=== PATIENT | male | born 1955 | race Caucasian/White ===

== ENCOUNTER → 2018-04-26 09:43 | Outpatient (CLI) | payer MEDICARE, SELFPAY ==
[2018-04-26 12:31] LABS: ALB/GLOB Ratio 1.1 RATIO (0.9-2.4); AST(SGOT) 32 U/L (15-37); Alanine Aminotransfer ALT/SGPT 49 U/L (16-61); Alkaline Phosphatase 46 U/L (45-117); Anion Gap 10 (5-15); BUN 18 mg/dL (7-18); BUN/Creat Ratio 20.4 RATIO (10-20); Chloride 105 mmol/L (98-107); Cholesterol 178 mg/dL (200); Creatinine, Serum 0.88 mg/dL (0.70-1.30); EST Glomerular Filtration Rate 92 mL/min (>60); Est Glom Filt Rate - Afr Amer 112 mL/min (>60); Globulin 3.8 g/dL (2.2-4.2); Glucose 99 mg/dL (74-106); High Density Lipoprotein 35 mg/dL; Potassium 4.2 mmol/L (3.5-5.1); Protein, Total 7.8 g/dL (6.4-8.2); Sodium Level 140 mmol/L (136-145); Triglycerides 92 mg/dL; Very Low Density Lipoprotein 18 mg/dL (5-40)
== END ==
PROVIDERS: Family Provider Family Medicine; PCP Family Medicine; Visit Provider Family Medicine
DX: I10 Essential (primary) hypertension (principal); E78.5 Hyperlipidemia, unspecified
CPT/HCPCS: 36415; 80053; 80061

== ENCOUNTER → 2018-09-25 17:08 | Outpatient (CLI) | payer MEDICARE, SELFPAY ==
[2018-06-12 11:07] VITALS: BMI 31.6
--- NOTE | 2018-09-25 17:11 | RAD_ITS ---
STUDY: X-RAY CHEST REASON FOR EXAM: Male, 63 years old. Cough TECHNIQUE: Single AP portable view of the chest. COMPARISON: None. FINDINGS: Lungs are expanded with innumerable well-defined circular nodules throughout both lung granados consistent with diffuse metastasis. Renal cell carcinoma can have this appearance as can other entities such as melanoma. No demonstrated effusion Heart and mediastinum cannot be assessed accurately due to the multiple nodules. Normal visualized pulmonary arteries. Normal visualized aortic arch and descending thoracic aorta. Normal visualized thoracic spine. Normal visualized ribs, clavicles, and shoulders. There is no demonstrated abnormality of the visualized soft tissue structures of the upper abdomen. RAD/Chest PA and Lateral IMPRESSION: Innumerable nodules scattered throughout both lung granados consistent with diffuse metastasis. Electronically Signed: Fran Vega MD at 17:43 EST , Service support ,
== END ==
PROVIDERS: Family Provider Family Medicine; PCP Family Medicine; Referring Provider Family Medicine; Visit Provider Family Medicine
DX: R05 Cough (principal)
CPT/HCPCS: 71046

== ENCOUNTER 2018-09-25 18:12 | Inpatient (IN) | payer MEDICARE, SELFPAY ==
[2018-09-25] VITALS (12 sets, daily range): BP systolic 116–137; BP diastolic 60–76; PULSE 97–112; RESP 16–27; TEMP 36.6–37.1; O2SAT 83–91; BMI 29.3; BMI 28.4; BMI 28.5
--- NOTE | 2018-09-25 | ASPIGT_PTH ---
PATIENT: YOU TENA LOC: [facility] U#:[id number] AGE/SX: 63/M ROOM: [facility] RE09/25/[address]: Dr. Alethea Collins DO : 1955 BED: 1 DIS: 09/30/2018 SPEC #: [id number] RECD: 09/26/18 09:29 STATUS: SHANTHI REBlair #: [id number] SUSAN: 09/25/18 00:[address]: Alethea Collins DEPT: SURGICAL PATHOLOGY RECD BY: Silvestre Dodson ENTERED: 09/26/18 09:30 SP TYPE: ASP RAD OTHR DR: MD Dr. Jethro Partida MD Dr. Derek Brown, DO Dr. Joseph Prah, MD Tissues: Lung, NOS Procedures: FNA Specimen Adequacy Gen Path Consultation (on slides) Special Stain Group II Surgery Specimen Level IV Imprint (control) HEADER OPERATION: CT-guided lung biopsy PRE-OP DIAGNOSIS: Melanoma, lung masses TISSUE SUBMITTED: Left lung mass 18g core x3 MICROSCOPIC DIAGNOSIS Left lung mass, CT-guided core biopsy: Malignant cells present consistent with metastatic malignant melanoma. AM:abundio 09/27/18 COMMENT The specimen is evaluated at the time of biopsy by Dr. Diaz. Immediate Evaluation = Malignant cells present. Immunohistochemistry ([id number]) supports the above diagnosis. This case is seen in consultation with Dr. Martinez of [employer]. The complete consultative report is viewable in patient's EMR. Case has been reviewed in consultation with Dr. Diaz who concurs with the above diagnosis. IDC:SJ MICROSCOPIC DESCRIPTION Slides are reviewed. GROSS DESCRIPTION Received in fixative is one container labeled with the patient's name and designated left lung. The specimen consists of elongated and irregular fragments of light salazar soft tissue measuring in aggregate 2 x 0.2 x 0.1 cm. The specimen is submitted in its entirety in one cassette. / AM:abundio 09/26/18 TC:0 CPT: 68499, 00019, 39857
--- NOTE | 2018-09-25 | IMM_PTH ---
PATIENT: YOU TENA LOC: U U#:[id number] AGE/SX: 63/M ROOM: [facility] [place] RE09/25/[address]: Dr. Alethea Collins DO : 1955 BED: 1 DIS: 09/30/2018 SPEC #: [id number] RECD: 09/27/18 12:34 STATUS: SHANTHI REQ #: [id number] SUSAN: 09/25/18 00:[address]: Alethea Collins DEPT: IMMUNOHISTOCHEMISTRY RECD BY: Shelley Dupree ENTERED: 09/27/18 12:36 SP TYPE: IMMUNO OTHR DR: MD Dr. Jethro Partida MD Dr. Derek Brown, DO Dr. Joseph Prah, MD Tissues: Left lung, NOS Procedures: NAPSIN A (add) Miko Ret (add) CK14 (add) CK20 (add) CK5-6 (add) CK7 (add) P53 (add) TTF1 (add) Vimentin (add) Pankeratin (initial) MELAN-A (add) PSAP (add) S-100 (add) PHYSICIAN & [place] [id number] SPECIMEN INFORMATION: Tissue Source: Left lung mass Clinical Info: Melanoma, lung mass Specimen Number: [id number] CPT code: 83024, 02520 x12 METHODOLOGY: Deparaffinized sections of prefer/formalin-fixed tissue or PAP/DQ stained slides are incubated with monoclonal/polyclonal antibodies/oligonucleotide probes. Localization is made via biotin free immunoperoxidase method. Appropriate controls are performed and reacted as expected. Results on target cell population are indicated in the following table: RESULTS: ANTIBODY / CLONE RESULT AE1-3 (AE1/AE3/PCK26) negative CK7 (OV-TL12/30) negative CK20 (KS20.8) negative Vimentin (V9) positive S-100 (4C4.9) positive, focal Melan A (A103) negative TTF-1 (8G7G3/1) negative Napsin A (Rabbit Polyclonal) negative PSAP (PASE/4LJ) negative CALRET (polyclonal) positive, focal CK5-6 (D5 & 1684) negative CK14 (LL002) negative P53 (DO-7) negative These tests were developed and their performance characteristics determined by [facility]. They may not have been cleared or approved by the U.S. Food and Drug Administration. The FDA has determined that such clearance or approval is not necessary. INTERPRETATION: Left lung mass, CT-guided biopsy: Consistent with metastatic malignant melanoma. AM:abundio 10/04/18 Case has been reviewed in consultation with Dr. Diaz who concurs with the above diagnosis. IDC:RICHIE
--- NOTE | 2018-09-25 18:24 | ED.RN ---
PT 88 PERCENT ON 6 LITERS. GOOD WAVEFORM. VENTURI MASK INITIATED AT 50 %
--- NOTE | 2018-09-25 18:40 | EKG12_ITS ---
Test Reason : Blood Pressure : / mmHG Vent. Rate : 108 BPM Atrial Rate : 108 BPM P-R Int : 136 ms QRS Dur : 086 ms QT Int : 326 ms P-R-T Axes : 035 002 066 degrees QTc Int : 436 ms Sinus tachycardia Low voltage QRS Borderline ECG Confirmed by TATIANNA SHETH MD ([id number]), international editorial producer SHIN ANDERSON ([id number]) on 09/28/2018 8:27:30 AM Referred By: Fahad Siddiqi Confirmed By:TATIANNA SHETH MD
--- NOTE | 2018-09-25 18:41 | CT_ITS ---
STUDY: CTA OF THE ABDOMINAL AORTA REASON FOR EXAM: Male, 63 years old. Remote history of melanoma.. Hypoxia. RADIATION DOSAGE (If Supplied By Facility): CTDIvol = ( ) mGy, DLP = ( ) mGycm TECHNIQUE: Axial CT angiography multi-detector data acquisition was obtained from the diaphragm to the ischial tuberosity following intravenous administration of 100ML ml of Isovue 370 contrast. Axial images and MIP images were reconstructed from the axial data set. Post-processing of the angiographic images was performed, with multiplanar reformation and 3D reconstruction. Individualized dose optimization techniques were used for this CT. TECHNICAL QUALITY: Good COMPARISON: PET/CT scan, May 15, 2017. CTA of the chest, September 25, 2018. Descriptors of Narrowing: None (0%) Mild (< 50%) Moderate (50-70%) Severe (70-90%) Subtotal/Total Occlusion (90-100%) Non-Evaluable (technically non-diagnostic FINDINGS: Abdominal aorta: There is minimal atherosclerotic changes of the infrarenal aorta without stricture dissection or aneurysm. Celiac and superior mesenteric arteries: No demonstrated narrowing. Inferior mesenteric artery: No demonstrated narrowing. Right renal artery(arteries): No demonstrated narrowing. Left renal artery(arteries): No demonstrated narrowing. Right common iliac artery: No demonstrated narrowing. Right external iliac artery: No demonstrated narrowing. Right internal iliac artery: No demonstrated narrowing. Left common iliac artery: No demonstrated narrowing. Left external iliac artery: No demonstrated narrowing. Left internal iliac artery: No demonstrated narrowing. There are multiple large nodular densities at the lung bases suspicious for metastatic disease. Please refer to the CTA of the chest for further details. The heart is normal in size. It there is diffuse fatty infiltration of the liver without focal mass. Normal spleen. Normal pancreas. There are low attenuation masses arising from the right adrenal gland. Metastases versus adenomas. Normal left adrenal gland. There is a 2.5 cm cystic-appearing lesion in the mid right kidney. There is a larger 4.7 cm cyst in the lower pole as well as other smaller cysts. There is no enhancing mass. Normal left kidney. There are multiple bilateral low-attenuation masses in the perinephric fat and retroperitoneal fat about the kidneys as well as extending downward into the extra peritoneal fat of the pelvic sidewalls. The largest measures 2.7 cm in length and could be seen next to the left psoas muscle on image 181 of series 2. Normal IVC. There is a 2.3 x 1.8 x 1.5 cm low-attenuation mass in the gastrohepatic ligament suspicious for malignancy. There is also a 1.2 cm low-attenuation mass just superior to the pancreatic tail and the splenic hilum. Normal stomach. There are low attenuation masses along the greater curvature measuring approximately 1 cm in diameter. Normal small bowel. Normal colon. Normal urinary bladder. The prostate is enlarged. No free air or free fluid is seen within the peritoneal cavity. There multiple nodules in subcutaneous fat over the abdominal wall and both flanks. There is degenerative change lumbar spine without evidence of lytic or blastic lesions. CT/CTA Abdomen W/WO Contrast IMPRESSION: 1. Multiple metastases involving the lungs retroperitoneal fat and mesenteric fat and subcutaneous fat and right adrenal gland. 2. Enlarged prostate. 3. Fatty infiltration of the liver. N.B. : The above information has been verbally conveyed by Kevon Carroll DO to Marta Contreras MD, on 09/25/2018 22:36:27 (ET). Electronically Signed: Kevon Carroll DO at 22:37 EST Tel [phone], Service support ,
--- NOTE | 2018-09-25 18:41 | CT_ITS ---
STUDY: CTA CHEST REASON FOR EXAM: Male, 63 years old. Hypoxia. Remote history of melanoma. RADIATION DOSAGE (If Supplied By Facility): CTDIvol = ( 15.58 ) mGy, DLP = ( 1016.80 ) mGycm TECHNIQUE: The examination was performed with the intravenous administration of 100ML ml of Isovue 370 contrast material. Post-processing of the angiographic images was performed, with multiplanar reformation and 3D reconstruction. Individualized dose optimization techniques were used for this CT. COMPARISON: Chest, September 25, 2018. FINDINGS: Normal enhancement of the main pulmonary artery and right and left pulmonary arteries. Normal enhancement of the bilateral peripheral pulmonary arteries. There is no demonstrated pulmonary embolism. Normal thoracic aorta. 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 There is no demonstrated aortic dissection. Normal heart and pericardium. There are small nonspecific mediastinal lymph nodes. Normal hilar regions. Normal visualized trachea and bronchi. The lungs are well expanded. There are too numerous to count rounded solid masses throughout both lungs most concentrated in the lower lobes. The largest posterior to the azygos vein region mediastinum measures 5.1 x 5.8 x 5.8 cm. No infiltrate or pleural effusions There are low attenuation mass is similar to those in the lungs in both axilla and in the subcutaneous tissues of both the anterior and posterior chest wall structures. There are degenerative changes of the thoracic spine without lytic or blastic lesions. Please refer to the CTA of the abdomen performed concurrently and dictated separately for discussion of the subdiaphragmatic findings. CT/CTA Chest W/WO Contrast IMPRESSION: Diffuse low attenuation masses throughout both lungs suspicious for metastatic disease. In light of their low attenuation appearance and the presence of similar lesions in the subcutaneous tissues metastatic melanoma is suspected. N.B. : The above information has been verbally conveyed by Kevon Carroll DO to Marta Contreras MD, on 09/25/2018 22:41:33 (ET). Electronically Signed: Kevon Carroll DO at 22:42 EST Tel [phone], Service support ,
[2018-09-25] MEDS: 0.9% Normal Saline 1,000 ML 150 ML IV (18:50)
[2018-09-25 18:51] LABS: Absolute Lymphocyte Count 1.42 X10^3/ul (0.83-4.51); Absolute Neutrophil Count 7.1 X10^3/uL (2.0-7.7); Basophil# 0.02 X10^3/uL; Basophil% 0.2 % (0-1); Eosinophil# 0.32 X10^3/uL; Eosinophils% 3.3 % (0-5); Hematocrit 42.8 % (40-54); Hemoglobin 14.2 g/dl (13.0-16.5); Lymphocyte # 1.42 X10^3/ul (4.0); Lymphocyte % 14.5 % (19-41); Mean Corp Hgb Conc 33.2 g/gl (32-36); Mean Corpuscular Hgb 30.9 pg (27.0-32.0); Mean Platelet Vol. 9.6 fl (6.2-12.0); Monocyte# 0.82 X10^3/uL; Monocyte% 8.4 % (0-10); Neutrophil # 7.12 X10^3/uL (2.7-7.7); Neutrophil % 72.9 % (47-70); Platelet Count 461 K/mm3 (150-450); RBC Distribution Width SD 47.4 fl (35.1-43.9); White Blood Count 9.8 K/mm3 (4.4-11.0)
--- NOTE | 2018-09-25 18:51 | ED.RN ---
PT REMAINS ON 50 % VENTURI MASK. P.O. 89-90 %. RESPIRATORY ENROUTE FOR AEROSOLS
[2018-09-25 18:52] LABS: POSITIVE COUNT NO; POSITIVE DIFFERENTIAL NO; POSITIVE MORPHOLOGY NO
[2018-09-25 19:06] LABS: Anion Gap 10 (5-15); BUN 31 mg/dL (7-18); BUN/Creat Ratio 45.5 RATIO (10-20); Calcium,Total 8.7 mg/dL (8.5-10.1); Chloride 107 mmol/L (98-107); Creatinine, Serum 0.68 mg/dL (0.70-1.30); EST Glomerular Filtration Rate 124 mL/min (>60); Est Glom Filt Rate - Afr Amer 150 mL/min (>60); Estimated Creatinine Clearance 111.83 ml/min; Glucose 99 mg/dL (74-106); Potassium 3.8 mmol/L (3.5-5.1); Sodium Level 139 mmol/L (136-145)
--- NOTE | 2018-09-25 22:48 | ED.DCSUM_ITS ---
- ER Visit Summary Date of Service: 09/25/18 Chief Complaint: [Shortness of breath] History of Present Illness: The patient is a 63 M [presents the emergency department shortness of breath for about a month. Patient was seen by Dr. Moreland and sent to the emergency department for hypoxemia. Patient also had a chest x-ray that showed abnormal metastasis to both lungs. Patient denies recent travel or surgery. He has had minimal cough. Cough mostly nonproductive. He denies any chest pain. Patient does have a history of hypertension and high cholesterol. Patient also with remote history of skin cancer. Patient states that he had melanoma removed from his left arm about a year and a half ago.] Physical Examination: [HEENT-PERRLA, EOMI. Cranial nerves II through XII grossly intact. TMs clear. Mucous membranes moist. No adenopathy. Cardiovascular-regular rate and rhythm without murmur or ectopy Lungs-decreased breath sounds bilaterally with some faint expiratory wheezes noted. Mild tachypnea. No accessory muscle use or retractions. Abdomen-normoactive bowel sounds, soft, nontender, no rebound or rigidity, no peritoneal signs. Extremities-intact ?4, normal range of motion, normal pulses, atraumatic] Test Results: [EKG obtained arrival shows sinus rhythm with a ventricular rate of 108 bpm with no acute I segment changes. CBC with differential showed a white count of 9.8, hemoglobin 14, hematocrit 43, platelets 461. History is unr emarkable. Troponin is less than 0.015. CT scans of the chest and abdomen with contrast showed diffuse metastasis in both lungs as well as retroperitoneal.] Emergency Department Course and Treatment: [Patient was placed on venti mask and oxygen. Patient was given a DuoNeb aerosol.] Treatment Plan: [Admit] Disposition: [Admit] Impression: [Hypoxemia Metastatic lung disease] This note was generated with [employer] dictation software. It may contain incorrect words, spelling, and punctuation that were not noted in review of the chart prior to signing ED Disposition - Plan for ED Patient: Referrals: Fahad Siddiqi MD [Primary Care Provider] -
--- NOTE | 2018-09-25 23:08 | HP.PCM_ITS ---
Problem List (1) Acute respiratory failure with hypoxia Status: Acute (2) Metastatic malignant melanoma Status: Acute (3) HTN (hypertension) Status: Chronic Qualifiers: Hypertension type: essential hypertension Qualified Code(s): I10 - Essential (primary) hypertension (4) HLD (hyperlipidemia) Status: Chronic Qualifiers: Hyperlipidemia type: pure hypercholesterolemia Qualified Code(s): E78.00 - Pure hypercholesterolemia, unspecified; E78.0 - Pure hypercholesterolemia History of Present Illness Date of Admission: 09/25/18 Chief Complaint: Dyspnea The patient is a 63 y/o M w/ PMHx: Hypertension, Melanoma s/p resection skin LUE ~ 1 year prior noted initially to have been thought cyst with then re-excision with per patient decent margins 05/2017 PET scan with increased glucose metabolism in the lateral soft tissue compartment left upper extremity prior to patient's second surgery, Hyperlipidemia who presents to the [facility] ED on 09/25/18 per his PCP recommendation with noted SPO2 77-80% on room air with chest x-ray demonstrating diffuse pulmonary nodules with ongoing cough, dyspnea worsening over the last nearly 4 weeks with patient refusal at PCP office for EMS transport noted to have driven himself. Patient notes that over the last 5-6 months he has lost approximately 15-20 pounds but he has been attempting weight loss with portion reduction. He denies any night sweats, fevers, chills. He does note that at the beginning of the year he started having small nodules on various skin regions and that these have grown notably over the last 2 months. work-up in the ED included initial T 98.8, heart rate 109, BP 116/64, respiratory rate 26, 91% on room air--> 80% on a Ventimask 10 L, CBC with WBC 9.8, heme globin 14.2, platelet 461 without market shift, BMP with BUN/creatinine 31/0.68, troponin < 0.015, CTA Chest, Abdomen and Pelvis w/ multiple metastatic disease involving the lungs, retroperitoneal fat and mesenteric fat as well as subcutaneous fat and right adrenal gland with no evidence of pulmonary embolism. Upon patient presentation discussed case with Dr. Valdovinos, power grader operator and he will evaluated in AM. Past Medical History Past Medical History (Chronic Problems): Chronic Problems (Last Reviewed 06/12/18 @ 11:08 by Saniya Parsons) HTN (hypertension) (Chronic) HLD (hyperlipidemia) (Chronic) Medical History: Medical History (Last Reviewed 06/12/18 @ 11:08 by Saniya Parsons) Melanoma C43.9 HTN (hypertension) I10 Allergies No Known Allergies Allergy (Verified 09/25/18 18:16) Home Medications: Ambulatory Orders Medication Instructions Recorded atorvastatin 10 mg tablet 10 mg PO DAILY 90 Days #90 tab 06/10/18 lisinopril 20 mg tablet 20 mg PO DAILY 90 Days #90 tab 06/10/18 Surgical History: Surgical History (Last Reviewed 06/12/18 @ 11:08 by Saniya Parsons) Status post surgical removal of malignant neoplasm of skin Z98.890 Surgical History: - - Left upper extremity melanoma intervention initially suspected to be cyst with follow-up resection following pathology results, bilateral lower extremity vein stripping. Psychiatric History: No pertinent psych hx Lives: Alone Smoking Status: Never smoker Tobacco Use: Non-smoker Alcohol: None Drugs: None - *Family History Maternal Family History: Family History (Last Reviewed 06/12/18 @ 11:08 by Saniya Parsons) Mother Diabetes Heart disease Father Heart disease History Items: - - Patient notes a maternal and paternal family history of heart disease in addition to a paternal family history of chronic lung disease with history of concurrent tobacco usage. Paternal Family History: Family History (Last Reviewed 06/12/18 @ 11:08 by Saniya Parsons) Mother Diabetes Heart disease Father Heart disease History Items: - - Patient notes a maternal and paternal family history of heart disease in addition to a paternal family history of chronic lung disease with history of concurrent tobacco usage. Review of Systems Constitutional: Reports: Malaise, Weakness, Fatigue. Denies: Chills, Fever, Weight Change HEENT: Denies: Head Aches, Sinus Congestion, Sinus Drainage Cardiovascular: Denies: Chest Pain, Palpitations Respiratory: Reports: Shortness of Breath, Shortness of breath at rest, Shortness of breath upon exertion. Denies: Cough, Sputum production Gastrointestinal: Denies: Abdominal Pain, Nausea, Vomiting Genitourinary: Denies: Dysuria Musculoskeletal: Denies: Joint Pain, Joint Tenderness Skin: Denies: Rash, Wounds Neurological: Denies: Numbness, Tingling, Focal weakness Psychiatric: Denies: Anxiety, Depression, Homicidal Ideations, Suicidal Ideations Hematologic/ Lymphatic: Denies: Easy Bruising, Easy Bleeding VTE Information - Inpt Only VTE Present on Admission: No VTE Mechan Device Prophylaxis: SCD's VTE Pharm Prophylaxis ordered?: Yes Patient Problems: Active and Suspected Problems (Last Reviewed 06/12/18 @ 11:08 by Saniya Parsons) Acute respiratory failure with hypoxia (Acute) Metastatic malignant melanoma (Acute) Subjective: Seated upright in ED bed, fatigued appearance, abdominal muscle usage, accessory muscle usage, increased respiratory rate, Ventimask in place. Objective: Physical Examination: General: awake, alert, oriented x 3 and cooperative, seated upright in the ED bed, ongoing increased respiratory rate, accessory muscle usage evident, Ventimask in place. Skin: normal color, turgor, no icterus, cyanosis except noted diffuse thorax nontender firm nodules which she has noted initially appeared at the beginning of the year and have continued to grow. HEENT: AT/NC, EOMI, PERRLA, mildly dry MM, no carotid bruits or JVD noted. Lungs: Fairly diffusely diminished breath sounds, increased rate, accessory muscle usage, Ventimask in place with oxygenation ranging from 88-91% while evaluating. Heart: Improved, regular rate and rhythm; no gallop, rub audible. Abdomen: soft, NTTP, ND, normal BS, no HSM. Extremities: no cyanosis, clubbing, or edema, see skin. Neurological: patient awake, alert, oriented x 3; cognitive function intact; pupils equally reactive to light and accomodation; cranial nerves II-XII grossly normal, moving all 4 extremities, no focal deficits, strength severely globally decreased secondary to acute preserved. Psychiatric: affect appears flat, lengthy discussion regarding status and does appear to comprehend, no acute evidence of depressive or anxiety feelings. - Physical Exam Vital Signs Temp Pulse Resp BP Pulse Ox 98.8 F 98 25 H 132/76 H 91 09/25/18 19:16 09/25/18 22:00 09/25/18 22:00 09/25/18 22:00 09/25/18 22:00 Oxygen Flow Rate (L/min) 10 Oxygen Delivery Method Venturi Mask Weight: 204 lb 5.896 oz Body Mass Index (BMI) 29.3 Laboratory Tests Past 24 Hrs 09/25/18 09/25/18 18:35 18:35 WBC 9.8 RBC 4.60 Hgb 14.2 Hct 42.8 MCV 93.0 MCH 30.9 MCHC 33.2 RDW 14.0 RDW Differential 47.4 H Plt Count 461 H MPV 9.6 Immature Gran % (Auto) 0.700 Neut % (Auto) 72.9 H Lymph % (Auto) 14.5 L Knott % (Auto) 8.4 Eos % (Auto) 3.3 Baso % (Auto) 0.2 Absolute Neuts (auto) 7.1 Absolute Lymphs (auto) 1.42 Total Counted Not Reportable Sodium 139 Potassium 3.8 Chloride 107 Carbon Dioxide 22.0 Anion Gap 10 BUN 31 H Creatinine 0.68 L Estim Creat Clear Calc 111.83 Est GFR (MDRD) Af Amer 150 Est GFR (MDRD) Non-Af 124 BUN/Creatinine Ratio 45.5 H Glucose 99 Calcium 8.7 Troponin I < 0.015 Assessment/Plan All Active Problems (Last Reviewed 06/12/18 @ 11:08 by Saniya Parsons) Acute respiratory failure with hypoxia (Acute) Metastatic malignant melanoma (Acute) Laceration of left thumb without damage to nail (Acute) The patient is a 63 y/o M w/ PMHx: Hypertension, Melanoma s/p resection skin LUE ~ 1 year prior noted initially to have been thought cyst with then re-excision with per patient decent margins w05/2017 PET scan with increased glucose metabolism in the lateral soft tissue compartment left upper extremity prior to patient's second surgery, Hyperlipidemia who presents to the [facility] ED on 09/25/18 per his PCP recommendation with noted SPO2 77-80% on room air with chest x-ray demonstrating diffuse pulmonary nodules with ongoing cough, dyspnea worsening over the last nearly 4 weeks. (1) Acute Hypoxic Respiratory Failure secondary to Suspected Metastatic Melanoma: Will admit to PCU, maintain on telemetry, ABG obtained in the ED and pending, if able to assist in improvement of comfort would consider CPAP/BIPAP, discussed code status and patient requested DNR-CCA, no intubation, will continue w/ Pulmonary AM consult, maintain on oxygen with wean as tolerated to room air, continue ATC duonebs, PRN albuterol, HOB, IS parameters. Patient preference to discuss presentation w/ Pulmonary and defer Oncology consultation until discussed his status and presentation with Pulmonary. From discussions with patient suspect he will be inclined to initiate hospice. In case of bx, will maintain NPO after midnight and hold AM lovenox pending Pulmonary eval uation, recommendations, discussions with patient. (2) Hypertension: Continue home regimen including lisinopril, PRN hydralazine. (3) Hyperlipidemia: Continue home statin regimen. (4) DVT Prophylaxis: SCDs, lovenox w/ AM hold for possible bx considerations. (5) CODE status: Discussed CODE status at length including difference between FULL code, DNR-CCA and DNR-CC status. Following discussions about the differences in these status, requested DNR-CCA, no intubation status. DNR-CCA, no intubation form signed and placed on the chart. Advanced Care Planning Face to Face Time: 18 minutes. Code Visit Inpatient E&M: 93994 Init Hosp L3 Procedures: 62993 Advncd Care Plan 30 Min
[2018-09-25 23:11] LABS: Allen Test POS; Base Excess -2 mmol/L (-2 to +2); Blood Gas Specimen Type ART; FI02 50; PO2 62 mmHG (75-100); SITE R Radial; SO2 91 % (95-99); Total Carbon Dioxide 24 mmol/L; pCO2 39.1 mmHg (35-45); pH 7.38 (7.35-7.45)
[2018-09-26] VITALS (37 sets, daily range): BP systolic 108–145; BP diastolic 44–92; PULSE 94–126; RESP 18–29; TEMP 36.5–37.3; O2SAT 87–95
--- NOTE | 2018-09-26 00:30 | CPS ---
Pt. doesn't wear CPAP @ home, and he has no interest in wearing here
--- NOTE | 2018-09-26 00:30 | CPS ---
Pt. doesn't wear CPAP @ home, and he has no interest in wearing it here
--- NOTE | 2018-09-26 00:30 | CPS ---
Pt. doesn't wear CPAP @ home, and he has no interest in wearing it here
--- NOTE | 2018-09-26 03:20 | CPS ---
Addendum entered by Irene Lehman 09/26/18 08:55: Original Note: PT SWITCHED TO HIGH FLOW NC DUE TO COMPLAINING ABOUT VENTI MASK
[2018-09-26] MEDS: Ipratropium/Albuterol Sulfate 3 ML AMPUL.NEB INHALATION ×5 (03:22→18:56)
[2018-09-26] MEDS: 0.9% Normal Saline 1,000 ML 100 ML IV ×2 (04:34→15:13)
--- NOTE | 2018-09-26 07:13 | PCM.CONS.GEN ---
Reason for Consult Date of Consultation: 09/26/18 Reason for Consultation: Hypoxemia/abnormal chest CT History of Present Illness: The patient is a 63-year-old male, with a history as outlined below, who presented to the emergency department at the urging of his PCP, Dr. Moreland, over concerns for hypoxemia and abnormal chest imaging studies. The patient endorses a history of melanoma, localized to his proximal left upper extremity, which was surgically resected approximately a year ago. The patient underwent 2 separate surgeries and was reportedly told that he had clear margins and no lymph node involvement. Over the last year, he has not had any additional follow-up with regard to the aforementioned. He reports that over the last month he has become progressively short of breath. He does not routinely utilize supplemental oxygen at his baseline. He reports that over the last 6 months he has lost 15-20 pounds, but states that he has made dietary modifications in an attempt to lose weight. Nevertheless, his appetite is not as robust as previous. The patient is a lifelong non-smoker, but did grow up in a smoking household. He worked previously in a [employer]. He has lived in [place] his entire life. He denies the presence of chest tightness or wheezing. He does report the presence of an occasional nonproductive cough. On presentation to the emergency department, the patient was noted to be afebrile, tachycardic and hypoxic, saturating 83% on room air. Laboratory evaluation revealed no evidence of a leukocytosis. Chemistry profile was largely unremarkable. Troponin was negative. A CTA chest was obtained and revealed no evidence for pulmonary embolism. However, there were innumerable rounded solid masses scattered throughout both lungs, consistent with metastatic disease. A CT of the abdomen also demonstrated evidence of metastatic disease. Past Medical History Past Medical History (Chronic Problems): Chronic Problems (Last Reviewed 06/12/18 @ 11:08 by Saniya Parsons) HTN (hypertension) (Chronic) HLD (hyperlipidemia) (Chronic) Medical History: Medical History (Last Reviewed 06/12/18 @ 11:08 by Saniya Parsons) Melanoma C43.9 HTN (hypertension) I10 Allergies No Known Allergies Allergy (Verified 09/25/18 18:16) Home Medications: Ambulatory Orders Medication Instructions Recorded atorvastatin 10 mg tablet 10 mg PO DAILY 90 Days #90 tab 06/10/18 lisinopril 20 mg tablet 20 mg PO DAILY 90 Days #90 tab 06/10/18 Surgical History: Surgical History (Last Reviewed 06/12/18 @ 11:08 by Saniya Parsons) Status post surgical removal of malignant neoplasm of skin Z98.890 Surgical History: - - Left upper extremity melanoma intervention initially suspected to be cyst with follow-up resection following pathology results, bilateral lower extremity vein stripping. Psychiatric History: No pertinent psych hx Lives: Alone Smoking Status: Never smoker Tobacco Use: Non-smoker Alcohol: None Drugs: None - *Family History Maternal Family History: Family History (Last Reviewed 06/12/18 @ 11:08 by Sanyia Parsons) Mother Diabetes Heart disease Father Heart disease History Items: - - Patient notes a maternal and paternal family history of heart disease in addition to a paternal family history of chronic lung disease with history of concurrent tobacco usage. Paternal Family History: Family History (Last Reviewed 06/12/18 @ 11:08 by Saniya Parsons) Mother Diabetes Heart disease Father Heart disease History Items: - - Patient notes a maternal and paternal family history of heart disease in addition to a paternal family history of chronic lung disease with history of concurrent tobacco usage. Review of Systems Constitutional: Reports: Weight Change, Fatigue Eyes: Denies: Blurred vision, Double vision HEENT: Denies: Head Aches, Sinus Congestion, Sinus Drainage Cardiovascular: Denies: Chest Pain, Palpitations Respiratory: Reports: Cough, Shortness of Breath Gastrointestinal: Denies: Abdominal Pain, Nausea, Vomiting Genitourinary: Denies: Dysuria Musculoskeletal: Denies: Joint Pain, Joint Tenderness Skin: Reports: - - Hx of Melanoma. Denies: Rash, Wounds Neurological: Denies: Numbness, Tingling, Focal weakness Psychiatric: Denies: Anxiety, Depression, Homicidal Ideations, Suicidal Ideations Hematologic/ Lymphatic: Denies: Easy Bruising, Easy Bleeding Patient Problems: Active and Suspected Problems (Last Reviewed 06/12/18 @ 11:08 by Saniya Parsons) Acute respiratory failure with hypoxia (Acute) Metastatic malignant melanoma (Acute) Objective: The patient's most recent lab work, culture data and imaging studies have all been personally reviewed. - Physical Exam General: Alert, Oriented x3, Cooperative, No apparent distress HEENT: Atraumatic, PERRLA, Normocephalic Oral: No Gingival or Mucosal Lesions/ Ulcerations Neck: Supple, No Nodes, Trachea Midline Lungs: No rhonchi, No wheeze, No rales, Diminished Cardiovascular: Regular Rhythm, Normal S1, Normal S2, No murmurs, Tachycardic Abdomen: Bowel Sounds Present, Soft Extremities: No clubbing, No cyanosis, No edema Skin: No breakdown Musculoskeletal: No Muscle Wasting Neurological: Cranial nerves II-XII grossly intact, Neuro grossly intact Psych/Mental Status: Alert and oriented to time, place, person, mood and affect Vital Signs Temp Pulse Resp BP Pulse Ox 36.8 C 101 H 20 H 142/72 H 91 09/26/18 06:27 09/26/18 06:27 09/26/18 06:27 09/26/18 06:27 09/26/18 06:27 Oxygen Flow Rate (L/min) 10 Oxygen Delivery Method Nasal Cannula Weight: 198 lb 6.656 oz Body Mass Index (BMI) 28.4 Intake and Output for Last 24 Hours 09/24/18 09/25/18 09/26/18 23:59 23:59 23:59 Intake Total 23.1 / 23.1 910 / 910 Balance 23.1 / 23.1 910 / 910 Laboratory Tests Past 24 Hrs 09/25/18 09/25/18 09/25/18 18:35 18:35 23:06 WBC 9.8 RBC 4.60 Hgb 14.2 Hct 42.8 MCV 93.0 MCH 30.9 MCHC 33.2 RDW 14.0 RDW Differential 47.4 H Plt Count 461 H MPV 9.6 Immature Gran % (Auto) 0.700 Neut % (Auto) 72.9 H Lymph % (Auto) 14.5 L Fajardo % (Auto) 8.4 Eos % (Auto) 3.3 Baso % (Auto) 0.2 Absolute Neuts (auto) 7.1 Absolute Lymphs (auto) 1.42 Total Counted Not Reportable Specimen Type ART Sample Site R Radial pH 7.38 Bicarbonate Actual 23.0 POC Total CO2 24 Base Excess -2 O2 Saturation 91 L O2 % 50 ABG pCO2 39.1 ABG pO2 62 L Joselito Test POS O2 Delivery Device Vent Mask Blood Gas Notified Whom HOSP Sodium 139 Potassium 3.8 Chloride 107 Carbon Dioxide 22.0 Anion Gap 10 BUN 31 H Creatinine 0.68 L Estim Creat Clear Calc 111.83 Est GFR (MDRD) Af Amer 150 Est GFR (MDRD) Non-Af 124 BUN/Creatinine Ratio 45.5 H Glucose 99 Calcium 8.7 Troponin I < 0.015 Clinical Impression(s) from Imaging Studies Abdomen CTA 09/25/18 18:41 IMPRESSION: 1. Multiple metastases involving the lungs retroperitoneal fat and mesenteric fat and subcutaneous fat and right adrenal gland. 2. Enlarged prostate. 3. Fatty infiltration of the liver. N.B. : The above information has been verbally conveyed by Kevon Carroll DO to Marta Contreras MD, on 09/25/2018 22:36:27 (ET). Electronically Signed: Kevon Carroll DO at 22:37 EST Tel [phone], Service support , ADDENDUM: 09/25/184 IMPRESSION: 1. Multiple metastases involving the lungs retroperitoneal fat and mesenteric fat and subcutaneous fat and right adrenal gland. 2. Enlarged prostate. 3. Fatty infiltration of the liver. N.B. : The above information has been verbally conveyed by Kevon Carroll DO to Marta Contreras MD, on 09/25/2018 22:36:27 (ET). Electronically Signed: Kevon Carroll DO at 22:37 EST Tel [phone], Service support , Chest CTA 09/25/18 18:41 IMPRESSION: Diffuse low attenuation masses throughout both lungs suspicious for metastatic disease. In light of their low attenuation appearance and the presence of similar lesions in the subcutaneous tissues metastatic melanoma is suspected. N.B. : The above information has been verbally conveyed by Kevon Carroll DO to Marta Contreras MD, on 09/25/2018 22:41:33 (ET). Electronically Signed: Kevon Carroll DO at 22:42 EST Tel [phone], Service support , ADDENDUM: 09/25/18 2249 IMPRESSION: Diffuse low attenuation masses throughout both lungs suspicious for metastatic disease. In light of their low attenuation appearance and the presence of similar lesions in the subcutaneous tissues metastatic melanoma is suspected. N.B. : The above information has been verbally conveyed by Kevon Carroll DO to Marta Contreras MD, on 09/25/2018 22:41:33 (ET). Electronically Signed: Kevon Carroll DO at 22:42 EST Tel [phone], Service support , Pelvis CTA 09/25/18 18:45 IMPRESSION: 1. Multiple metastases involving the lungs retroperitoneal fat and mesenteric fat and subcutaneous fat and right adrenal gland. 2. Enlarged prostate. 3. Fatty infiltration of the liver. N.B. : The above information has been verbally conveyed by Kevon Carroll DO to Marta Contreras MD, on 09/25/2018 22:36:27 (ET). Electronically Signed: Kevon Carroll DO at 22:37 EST Tel [phone], Service support , ADDENDUM: 09/25/18 2245 IMPRESSION: 1. Multiple metastases involving the lungs retroperitoneal fat and mesenteric fat and subcutaneous fat and right adrenal gland. 2. Enlarged prostate. 3. Fatty infiltration of the liver. N.B. : The above information has been verbally conveyed by Kevon Carroll DO to Marta Contreras MD, on 09/25/2018 22:36:27 (ET). Electronically Signed: Kevon Carroll DO at 22:37 EST Tel [phone], Service support , Assessment/Plan All Active Problems (Last Reviewed 06/12/18 @ 11:08 by Saniya Parsons) Acute respiratory failure with hypoxia (Acute) Metastatic malignant melanoma (Acute) Laceration of left thumb without damage to nail (Acute) RECOMMENDATIONS: 1. Patient to remain n.p.o. for now. Per radiology, CT-guided lung biopsy will be completed this morning. 2. Oncology consultation has been placed. Dr. Nagy to see patient following biopsy. 3. Wean supplemental oxygen to maintain saturations at or above 90%. IMPRESSIONS: 1. Acute hypoxemic respiratory failure secondary to extensive suspected pulmonary metastatic disease The patient does have a reported history of melanoma, which was surgically resected 1 year ago. He reportedly had clear margins and no lymph node involvement at that time. However, over the course of the last year, the patient appears to have developed significant pulmonary metastatic disease with extensive tumor burden bilaterally. This is most likely the etiology for his hypoxemia. I personally explained the patient's CAT scan findings to him this morning along with my concerns. The patient appears to be understanding. I recommended that we obtain an opinion from oncology with regards to potential management of the aforementioned. I called and spoke with Dr. Nagy this morning who indicated that he would see the patient, but would like to proceed with obtaining a biopsy, if at all feasible. Given the extensive pulmonary tumor burden, along with its proximity to the pleural surface, an order was placed for a CT-guided lung biopsy. I called and spoke with Dr. Colunga, who is in agreement to perform the CT-guided lung biopsy this morning. This note was generated with [employer] dictation software. It may contain incorrect words, spelling, and punctuation that were not noted in checking the note before signing. Code Visit Inpatient E&M: 57364 Init Hosp L3
--- NOTE | 2018-09-26 07:17 | CON.PCM_ITS ---
Reason for Consult Date of Consultation: 09/26/18 Reason for Consultation: Hypoxemia/abnormal chest CT History of Present Illness: The patient is a 63-year-old male, with a history as outlined below, who presented to the emergency department at the urging of his PCP, Dr. Moreland, over concerns for hypoxemia and abnormal chest imaging studies. The patient endorses a history of melanoma, localized to his proximal left upper extremity, which was surgically resected approximately a year ago. The patient underwent 2 separate surgeries and was reportedly told that he had clear margins and no lymph node involvement. Over the last year, he has not had any additional follow-up with regard to the aforementioned. He reports that over the last month he has become progressively short of breath. He does not routinely utilize supplemental oxygen at his baseline. He reports that over the last 6 months he has lost 15- 20 pounds, but states that he has made dietary modifications in an attempt to lose weight. Nevertheless, his appetite is not as robust as previous. The patient is a lifelong non-smoker, but did grow up in a smoking household. He worked previously in a [employer]. He has lived in [place] his entire life. He denies the presence of chest tightness or wheezing. He does report the presence of an occasional nonproductive cough. On presentation to the emergency department, the patient was noted to be afebrile, tachycardic and hypoxic, saturating 83% on room air. Laboratory evaluation revealed no evidence of a leukocytosis. Chemistry profile was largely unremarkable. Troponin was negative. A CTA chest was obtained and revealed no evidence for pulmonary embolism. However, there were innumerable rounded solid masses scattered throughout both lungs, consistent with metastatic disease. A CT of the abdomen also demonstrated evidence of metastatic disease. Past Medical History Past Medical History (Chronic Problems): Chronic Problems (Last Reviewed 06/12/18 @ 11:08 by Saniya Parsons) HTN (hypertension) (Chronic) HLD (hyperlipidemia) (Chronic) Medical History: Medical History (Last Reviewed 06/12/18 @ 11:08 by Saniya Parsons) Melanoma C43.9 HTN (hypertension) I10 Allergies No Known Allergies Allergy (Verified 09/25/18 18:16) Home Medications: Ambulatory Orders Medication Instructions Recorded atorvastatin 10 mg tablet 10 mg PO DAILY 90 Days #90 tab 06/10/18 lisinopril 20 mg tablet 20 mg PO DAILY 90 Days #90 tab 06/10/18 Surgical History: Surgical History (Last Reviewed 06/12/18 @ 11:08 by Saniya Parsons) Status post surgical removal of malignant neoplasm of skin Z98.890 Surgical History: - - Left upper extremity melanoma intervention initially suspected to be cyst with follow-up resection following pathology results, bilateral lower extremity vein stripping. Psychiatric History: No pertinent psych hx Lives: Alone Smoking Status: Never smoker Tobacco Use: Non-smoker Alcohol: None Drugs: None - *Family History Maternal Family History: Family History (Last Reviewed 06/12/18 @ 11:08 by Saniya Parsons) Mother Diabetes Heart disease Father Heart disease History Items: - - Patient notes a maternal and paternal family history of heart disease in addition to a paternal family history of chronic lung disease with history of concurrent tobacco usage. Paternal Family History: Family History (Last Reviewed 06/12/18 @ 11:08 by Saniya Parsons) Mother Diabetes Heart disease Father Heart disease History Items: - - Patient notes a maternal and paternal family history of heart disease in addition to a paternal family history of chronic lung disease with history of concurrent tobacco usage. Review of Systems Constitutional: Reports: Weight Change, Fatigue Eyes: Denies: Blurred vision, Double vision HEENT: Denies: Head Aches, Sinus Congestion, Sinus Drainage Cardiovascular: Denies: Chest Pain, Palpitations Respiratory: Reports: Cough, Shortness of Breath Gastrointestinal: Denies: Abdominal Pain, Nausea, Vomiting Genitourinary: Denies: Dysuria Musculoskeletal: Denies: Joint Pain, Joint Tenderness Skin: Reports: - - Hx of Melanoma. Denies: Rash, Wounds Neurological: Denies: Numbness, Tingling, Focal weakness Psychiatric: Denies: Anxiety, Depression, Homicidal Ideations, Suicidal Ideations Hematologic/ Lymphatic: Denies: Easy Bruising, Easy Bleeding Patient Problems: Active and Suspected Problems (Last Reviewed 06/12/18 @ 11:08 by Saniya Parsons) Acute respiratory failure with hypoxia (Acute) Metastatic malignant melanoma (Acute) Objective: The patient's most recent lab work, culture data and imaging studies have all been personally reviewed. - Physical Exam General: Alert, Oriented x3, Cooperative, No apparent distress HEENT: Atraumatic, PERRLA, Normocephalic Oral: No Gingival or Mucosal Lesions/ Ulcerations Neck: Supple, No Nodes, Trachea Midline Lungs: No rhonchi, No wheeze, No rales, Diminished Cardiovascular: Regular Rhythm, Normal S1, Normal S2, No murmurs, Tachycardic Abdomen: Bowel Sounds Present, Soft Extremities: No clubbing, No cyanosis, No edema Skin: No breakdown Musculoskeletal: No Muscle Wasting Neurological: Cranial nerves II-XII grossly intact, Neuro grossly intact Psych/Mental Status: Alert and oriented to time, place, person, mood and affect Vital Signs Temp Pulse Resp BP Pulse Ox 36.8 C 101 H 20 H 142/72 H 91 09/26/18 06:27 09/26/18 06:27 09/26/18 06:27 09/26/18 06:27 09/26/18 06:27 Oxygen Flow Rate (L/min) 10 Oxygen Delivery Method Nasal Cannula Weight: 198 lb 6.656 oz Body Mass Index (BMI) 28.4 Intake and Output for Last 24 Hours 09/24/18 09/25/18 09/26/18 23:59 23:59 23:59 Intake Total 23.1 / 23.1 910 / 910 Balance 23.1 / 23.1 910 / 910 Laboratory Tests Past 24 Hrs 09/25/18 09/25/18 09/25/18 18:35 18:35 23:06 WBC 9.8 RBC 4.60 Hgb 14.2 Hct 42.8 MCV 93.0 MCH 30.9 MCHC 33.2 RDW 14.0 RDW Differential 47.4 H Plt Count 461 H MPV 9.6 Immature Gran % (Auto) 0.700 Neut % (Auto) 72.9 H Lymph % (Auto) 14.5 L Parmer % (Auto) 8.4 Eos % (Auto) 3.3 Baso % (Auto) 0.2 Absolute Neuts (auto) 7.1 Absolute Lymphs (auto) 1.42 Total Counted Not Reportable Specimen Type ART Sample Site R Radial pH 7.38 Bicarbonate Actual 23.0 POC Total CO2 24 Base Excess -2 O2 Saturation 91 L O2 % 50 ABG pCO2 39.1 ABG pO2 62 L Joselito Test POS O2 Delivery Device Vent Mask Blood Gas Notified Whom HOSP Sodium 139 Potassium 3.8 Chloride 107 Carbon Dioxide 22.0 Anion Gap 10 BUN 31 H Creatinine 0.68 L Estim Creat Clear Calc 111.83 Est GFR (MDRD) Af Amer 150 Est GFR (MDRD) Non-Af 124 BUN/Creatinine Ratio 45.5 H Glucose 99 Calcium 8.7 Troponin I < 0.015 Clinical Impression(s) from Imaging Studies Abdomen CTA 09/25/18 18:41 IMPRESSION: 1. Multiple metastases involving the lungs retroperitoneal fat and mesenteric fat and subcutaneous fat and right adrenal gland. 2. Enlarged prostate. 3. Fatty infiltration of the liver. N.B. : The above information has been verbally conveyed by Kevon Carroll DO to Marta Contreras MD, on 09/25/2018 22:36:27 (ET). Electronically Signed: Kevon Carroll DO at 22:37 EST Tel [phone], Service support , ADDENDUM: 09/25/184 IMPRESSION: 1. Multiple metastases involving the lungs retroperitoneal fat and mesenteric fat and subcutaneous fat and right adrenal gland. 2. Enlarged prostate. 3. Fatty infiltration of the liver. N.B. : The above information has been verbally conveyed by Kevon Carroll DO to Marta Contreras MD, on 09/25/2018 22:36:27 (ET). Electronically Signed: Kevon Carroll DO at 22:37 EST Tel [phone], Service support , Chest CTA 09/25/18 18:41 IMPRESSION: Diffuse low attenuation masses throughout both lungs suspicious for metastatic disease. In light of their low attenuation appearance and the presence of similar lesions in the subcutaneous tissues metastatic melanoma is suspected. N.B. : The above information has been verbally conveyed by Kevon Carroll DO to Marta Contreras MD, on 09/25/2018 22:41:33 (ET). Electronically Signed: Kevon Carroll DO at 22:42 EST Tel [phone], Service support , ADDENDUM: 09/25/18 2249 IMPRESSION: Diffuse low attenuation masses throughout both lungs suspicious for metastatic disease. In light of their low attenuation appearance and the presence of similar lesions in the subcutaneous tissues metastatic melanoma is suspected. N.B. : The above information has been verbally conveyed by Kevon Carroll DO to Marta Contreras MD, on 09/25/2018 22:41:33 (ET). Electronically Signed: Kevon Carroll DO at 22:42 EST Tel [phone], Service support , Pelvis CTA 09/25/18 18:45 IMPRESSION: 1. Multiple metastases involving the lungs retroperitoneal fat and mesenteric fat and subcutaneous fat and right adrenal gland. 2. Enlarged prostate. 3. Fatty infiltration of the liver. N.B. : The above information has been verbally conveyed by Kevon Carroll DO to Marta Contreras MD, on 09/25/2018 22:36:27 (ET). Electronically Signed: Kevon Carroll DO at 22:37 EST Tel [phone], Service support , ADDENDUM: 09/25/18 2245 IMPRESSION: 1. Multiple metastases involving the lungs retroperitoneal fat and mesenteric fat and subcutaneous fat and right adrenal gland. 2. Enlarged prostate. 3. Fatty infiltration of the liver. N.B. : The above information has been verbally conveyed by Kevon Carroll DO to Marta Contreras MD, on 09/25/2018 22:36:27 (ET). Electronically Signed: Kevon Carroll DO at 22:37 EST Tel [phone], Service support , Assessment/Plan All Active Problems (Last Reviewed 06/12/18 @ 11:08 by Saniya Parsons) Acute respiratory failure with hypoxia (Acute) Metastatic malignant melanoma (Acute) Laceration of left thumb without damage to nail (Acute) RECOMMENDATIONS: 1. Patient to remain n.p.o. for now. Per radiology, CT-guided lung biopsy will be completed this morning. 2. Oncology consultation has been placed. Dr. Nagy to see patient following biopsy. 3. Wean supplemental oxygen to maintain saturations at or above 90%. IMPRESSIONS: 1. Acute hypoxemic respiratory failure secondary to extensive suspected pulmonary metastatic disease The patient does have a reported history of melanoma, which was surgically resected 1 year ago. He reportedly had clear margins and no lymph node invol vement at that time. However, over the course of the last year, the patient appears to have developed significant pulmonary metastatic disease with extensive tumor burden bilaterally. This is most likely the etiology for his hypoxemia. I personally explained the patient's CAT scan findings to him this morning along with my concerns. The patient appears to be understanding. I recommended that we obtain an opinion from oncology with regards to potential management of the aforementioned. I called and spoke with Dr. Nagy this morning who indicated that he would see the patient, but would like to proceed with obtaining a biopsy, if at all feasible. Given the extensive pulmonary tumor burden, along with its proximity to the pleural surface, an order was placed for a CT-guided lung biopsy. I called and spoke with Dr. Colunga, who is in agreement to perform the CT-guided lung biopsy this morning. This note was generated with [employer] dictation software. It may contain incorrect words, spelling, and punctuation that were not noted in checking the note before signing. Code Visit Inpatient E&M: 05172 Init Hosp L3
--- NOTE | 2018-09-26 08:06 | CT_ITS ---
PROCEDURE: CT GUIDED CORE NEEDLE BIOPSY OF A left upper lobe LUNG LESION INDICATION: Male, 63 years old. Multiple pulmonary metastasis. PHYSICIAN: Dr. Keanu RIVAS CONSENT: Written informed consent was obtained having explained the risks, benefits and alternatives in detail with the patient who accepted the risks and agreed to proceed. Laboratory review and clinical assessment was performed. CONSCIOUS SEDATION PROTOCOL: The Drugs used were: 1 mg Versed, IV., and 25 mcg Fentanyl, IV. The sedation time was: 16 minutes. Conscious sedation was started and 9 exam and terminated at 9:16 AM. The conscious sedation protocol was independently monitored. RADIATION DOSAGE (If Supplied By Facility): CTDIvol = ( 17 ) mGy, DLP = ( 1001.57 ) mGycm Individualized dose optimization techniques were used for this CT. TECHNIQUE: The patient was placed in the supine position. A noncontrast CT was performed to localize the lesion in the peripheral aspect of the left upper lobe . The skin surface was prepped and draped in a sterile fashion. 1% lidocaine was used for local anesthesia. Using CT guidance, a 18-gauge coaxial biopsy device was advanced to the periphery of the lesion. A total of 3 core specimens were obtained. The specimens were placed in a formalin solution. A post procedure CT demonstrated no adverse sequelae or pneumothorax. The patient tolerated the procedure well without adverse event. A negative biopsy does not exclude malignancy. Further imaging or clinical followup based on patient condition and degree of clinical suspicion for malignancy. Suggest rebiopsy, if biopsy results do not match with clinical scenario. CT/Biopsy/Inj or Needle Placement IMPRESSION: 1. CT directed core needle biopsy of the left upper lobe using CT image guidance with image documentation as described. Pathology results are pending. 2. Conscious Sedation protocol utilized with independent monitoring. Electronically Signed: Rodger Colunga MD at 12:17 EST , Service support ,
[2018-09-26] MEDS: 0.9% NaCl Peripheral Flush Adult/Peds IV (08:32)
[2018-09-26 08:57] LABS: Prothrombin Time (Protime)PT. 13.6 SECONDS (11.7-14.9)
[2018-09-26] MEDS: fentaNYL 100 MCG/2 ML Ampul IV (08:59)
[2018-09-26] MEDS: Midazolam 2 MG/2 ML Syringe IV (09:00)
--- NOTE | 2018-09-26 09:25 | RAD_ITS ---
STUDY: X-RAY CHEST REASON FOR EXAM: Male, 63 years old. The patient is status post left lung biopsy. TECHNIQUE: Inspiration expiration views. COMPARISON: Comparison is made with prior study dated September 25, 2018. FINDINGS: EKG electrodes are seen. Surgical clips are seen in the left axillary region. Stable multiple bilateral pulmonary nodules. There is no evidence of pneumothorax. RAD/Chest Insp/Exp 2 View IMPRESSION: No evidence of pneumothorax on the post left lung biopsy radiograph. Electronically Signed: Rodger Colunga MD at 13:05 EST , Service support ,
[2018-09-26] MEDS: Morphine 2 MG/ML Syringe IV ×2 (12:22→21:55)
[2018-09-26] MEDS: LORazepam 2 MG/ML Syringe 1 MG IV (12:22)
[2018-09-26] MEDS: Lisinopril 20 MG Tablet PO (12:28)
--- NOTE | 2018-09-26 12:28 | RAD_ITS ---
STUDY: X-RAY CHEST REASON FOR EXAM: Male, 63 years old. Tachycardia and chest pain. TECHNIQUE: Single AP portable view of the chest. COMPARISON: Comparison is made with prior examination done earlier today. FINDINGS: No evidence of pneumothorax. Stable multiple bilateral pulmonary nodules. RAD/Chest 1 View (Portable) IMPRESSION: Stable examination. No evidence of pneumothorax. Electronically Signed: Rdoger Colunga MD at 13:06 EST , Service support ,
[2018-09-26] MEDS: Atenolol 25 MG Tablet PO (12:31)
--- NOTE | 2018-09-26 16:14 | ONC.CONS.INP ---
Consult Referring Physician: Dr. Moni melendez. Consult Results: Disseminated malignancy-most likely Melanoma. Subjective Date of Service:: 09/26/18 Chief Complaint: SOB History of Present Illness: 63-year-old man presented with shortness of breath, Dr. Siddiqi sent him to the emergency room. He was found to be hypoxic. CT on 09/25/2018 showed multiple lung nodules, multiple subcutaneous nodules and multiple peritoneal nodules. He is now admitted to the hospital. He had melanoma removed from the left upper arm over a year ago first at [facility] and then at [facility]. PET/CT scan in May 2017 was reported as negative. Past Medical History: Chronic Problems (Last Reviewed 06/12/18 @ 11:08 by Saniya Parsons) HTN (hypertension) (Chronic) HLD (hyperlipidemia) (Chronic) Past Medical/Surgical History: Past Medical History - Most Recent Inpatient Visit Past Medical History Start: 09/25/18 23:59 Text: Status: Complete Freq: ONCE Protocol: Document 09/25/18 23:59 [facility] (Rec: 09/26/18 00:15 [facility] [id number]) BMI Required to complete PMH What is Patient's BMI 28.5 Past Medical History Unable History Recalled No Query Text:Pt Unable/Family Not Present Neurologic Medical History Hx Stroke/TIA No Hx Dementia/Alzheimer's No Hx Parkinson's Disease No Hx Seizures No Hx Multiple Sclerosis No Hx Migraines No Cardiac Medical History VTE Present on Admission No Hx of Deep Vein Thrombosis/VTE/PE No Hx Hypertension Yes Hx Chest Pain/Angina No Hx Heart Attack No Hx Cardiac Surgery/Stents/Etc. No Hx Heart Failure No Hx Pacemaker/AICD No Hx Irregular Heartbeat and/or Afib No Hx Anticoagulant Therapy No Query Text:(Coumadin, Aspirin, Plavix, Xarelto, etc.) Hx Pain in Legs when Walking/Leg Cramps No Respiratory Medical History Hx COPD No Hx Emphysema No Hx Smoking No Smoking Status Never smoker Tobacco Use Non-smoker Hx Tobacco Use in last 12 months No Hx Sleep Apnea No Do you snore loudly (louder than talking No or can be heard through closed doors)? Do you often feel tired/ fatigued/ No sleepy during daytime? Has anyone observed you stop breathing No during sleep? STOP Results Negative GI Medical History Hx Ulcer No Hx Hepatitis No Hx Cirrhosis No Hx GI Bleed No Hx Unplanned Weight Loss No Genitourinary Medical History Indwelling Catheter in Place on Arrival/ No Admission Hx Renal Disease No Hx Dialysis No Musculoskeletal History Hx Arthritis Yes Hx Rheumatoid Arthritis No Endocrine Medical History Hx Diabetes No Hx Thyroid Disease No Hematologic Medical History Hx of Blood Transfusion No Hx of Transfusion in last 3 Months No Ever experience any problems with No transfusion(s)? Hx of Preganancy in last 3 Months N/A Nurse Filling Out Transfusion & OHALE Questions: Date: 09/26/18 Time: 00:13 Psycho/Social Medical History Hx Depression No Hx Anxiety No Hx Behavior Disorder No Hx Alcohol Use No Hx Substance Use No Other Medical History Hx Blood Disorders No Hx Anemia No Hx Cancer Yes: lung with mets Hx Drug Resistant Organism No Wound/Pressure Injury Present on Arrival No /Admission Query Text:If yes, chart assessment in Shift/Clinical Findings Central Line/PICC/VAD Present on Arrival No /Admission Antibiotics within last 7 days? No Risk for Readmission Number of Risk Factors 2 At Risk for Readmission Patient is At Risk For Readmission Patient is eligible for Call Back Y Past Medical History (Last Reviewed 06/12/18 @ 11:08 by Saniya Parsons) Melanoma (Acute) HTN (hypertension) (Chronic) Past Surgical History (Last Reviewed 06/12/18 @ 11:08 by Saniya Parsons) Status post surgical removal of malignant neoplasm of skin (Acute) Maternal Family History: Family History (Last Reviewed 06/12/18 @ 11:08 by Saniya Parsons) Mother Diabetes Heart disease Father Heart disease Family History: - - Patient notes a maternal and paternal family history of heart disease in addition to a paternal family history of chronic lung disease with history of concurrent tobacco usage. Paternal Family History: Family History (Last Reviewed 06/12/18 @ 11:08 by Saniya Parsons) Mother Diabetes Heart disease Father Heart disease Family History: - - Patient notes a maternal and paternal family history of heart disease in addition to a paternal family history of chronic lung disease with history of concurrent tobacco usage. - Social History Lives: Alone Smoking Status: Never smoker Tobacco Use: Non-smoker Alcohol: None Drugs: None Allergies/Adverse Reactions: Allergy/AdvReac Type Severity Reaction Status Date / Time No Known Allergies Allergy Verified 09/25/18 18:16 Review of Systems Constitutional:: Reports: Weakness, Weight loss. Denies: Fever, Sweats Cardiovascular:: Denies: Chest pain, Palpitations, Dyspnea on exertion, Orthopnea, PND, Shortness of breath Respiratory: Reports: Shortness of breath at rest - for about 1 month. Gastrointestinal:: Denies: Abdominal pain, Nausea, Vomiting, Diarrhea, Constipation, Hematochezia Genitourinary: Denies: Dysuria, Hematuria, 15, Flank pain Musculoskeletal:: Denies: Back pain, Myalgia, Arthralgia Skin: Denies: Rash, Skin Changes, Wounds Neurological:: Denies: Headache, Dizziness, Visual changes, Tinnitus, Hearing loss Psychiatric: Denies: Anxiety, Depression, Homicidal Ideations, Suicidal Ideations Vital Signs Height 5 ft 10 in Weight: 90 kg Weight in Pounds 198.4 lbs Pulse Ox 94 Temperature 97.7 F Pulse Rate [4] 112 Pulse Rate [3] 110 Pulse Rate [2] 112 Pulse Rate [1 (Initial 111 Baseline)] Pulse Rate 100 Respiratory Rate [4] 23 Respiratory Rate [3] 26 Respiratory Rate [2] 23 Respiratory Rate [1 (Initial 25 Baseline)] Respiratory Rate 26 Blood Pressure [4] 125/65 Blood Pressure [3] 123/57 Blood Pressure [2] 112/44 Blood Pressure [1 (Initial 124/60 Baseline)] Blood Pressure 113/69 Blood Pressure Position Semi-Fowlers - Physical Exam General: Alert, Oriented x3, No apparent distress HEENT: Atraumatic, PERRLA, EOMI, Normocephalic Oropharynx:: Dry mucosa Neck:: Supple, Trachea midline. Negative for: JVD, bilateral Cardiac:: Tachycardia Lungs: Normal air movement, Tachypneic Abdomen:: Bowel sounds x 4, Soft, Non-tender, Non-distended. Negative for: Hepatosplenomegaly Extremities:: - - Scar L arm.. Negative for: Cyanosis, Edema Neurological: Neuro grossly intact Skin:: - - multiple subcutaneous nodules. Psychiatric:: Appropriate affect, Euthymic Lymphatics:: Negative for: Cervical lymphadenopathy, Supraclavicular lymphadenopathy, Axillary lymphadenopathy Laboratory Data: Laboratory Tests 09/26/18 09/25/18 09/25/18 Range/Units 08:38 23:06 18:35 WBC (4.4-11.0) K/mm3 RBC (4.6-6.2) M/mm3 Hgb (13.0-16.5) g/dl Hct (40-54) % MCV (80-94) fL MCH (27.0-32.0) pg MCHC (32-36) g/gl RDW (11.6-14.6) % RDW Differential (35.1-43.9) fl Plt Count (150-450) K/mm3 MPV (6.2-12.0) fl Immature Gran % (Auto) (0.0-0.9) % Neut % (Auto) (47-70) % Lymph % (Auto) (19-41) % [place] % (Auto) (0-10) % Eos % (Auto) (0-5) % Baso % (Auto) (0-1) % Absolute Neuts (auto) (2.0-7.7) X10^3/uL Absolute Lymphs (auto) (0.83-4.51) X10^3/ul Total Counted PT 13.6 (11.7-14.9) SECONDS INR 1.0 Specimen Type ART Sample Site R Radial pH 7.38 (7.35-7.45) Bicarbonate Actual 23.0 (22-26) mmol/L POC Total CO2 24 mmol/L Base Excess -2 (-2 to +2) mmol/L O2 Saturation 91 L (95-99) % O2 % 50 ABG pCO2 39.1 (35-45) mmHg ABG pO2 62 L (75-100) mmHG Joselito Test POS O2 Delivery Device Vent Mask Blood Gas Notified Whom HOSP Sodium 139 (136-145) mmol/L Potassium 3.8 (3.5-5.1) mmol/L Chloride 107 (98-107) mmol/L Carbon Dioxide 22.0 (21.0-32.0) mmol/L Anion Gap 10 (5-15) BUN 31 H (7-18) mg/dL Creatinine 0.68 L (0.70-1.30) mg/dL Estim Creat Clear Calc 111.83 ml/min Est GFR (MDRD) Af Amer 150 (>60) mL/min Est GFR (MDRD) Non-Af 124 (>60) mL/min BUN/Creatinine Ratio 45.5 H (10-20) RATIO Glucose 99 (74-106) mg/dL Calcium 8.7 (8.5-10.1) mg/dL Troponin I < 0.015 (<0.045) ng/mL 09/25/18 Range/Units 18:35 WBC 9.8 (4.4-11.0) K/mm3 RBC 4.60 (4.6-6.2) M/mm3 Hgb 14.2 (13.0-16.5) g/dl Hct 42.8 (40-54) % MCV 93.0 (80-94) fL MCH 30.9 (27.0-32.0) pg MCHC 33.2 (32-36) g/gl RDW 14.0 (11.6-14.6) % RDW Differential 47.4 H (35.1-43.9) fl Plt Count 461 H (150-450) K/mm3 MPV 9.6 (6.2-12.0) fl Immature Gran % (Auto) 0.700 (0.0-0.9) % Neut % (Auto) 72.9 H (47-70) % Lymph % (Auto) 14.5 L (19-41) % [place] % (Auto) 8.4 (0-10) % Eos % (Auto) 3.3 (0-5) % Baso % (Auto) 0.2 (0-1) % Absolute Neuts (auto) 7.1 (2.0-7.7) X10^3/uL Absolute Lymphs (auto) 1.42 (0.83-4.51) X10^3/ul Total Counted Not Reportable PT (11.7-14.9) SECONDS INR Specimen Type Sample Site pH (7.35-7.45) Bicarbonate Actual (22-26) mmol/L POC Total CO2 mmol/L Base Excess (-2 to +2) mmol/L O2 Saturation (95-99) % O2 % ABG pCO2 (35-45) mmHg ABG pO2 (75-100) mmHG Joselito Test O2 Delivery Device Blood Gas Notified Whom Sodium (136-145) mmol/L Potassium (3.5-5.1) mmol/L Chloride (98-107) mmol/L Carbon Dioxide (21.0-32.0) mmol/L Anion Gap (5-15) BUN (7-18) mg/dL Creatinine (0.70-1.30) mg/dL Estim Creat Clear Calc ml/min Est GFR (MDRD) Af Amer (>60) mL/min Est GFR (MDRD) Non-Af (>60) mL/min BUN/Creatinine Ratio (10-20) RATIO Glucose (74-106) mg/dL Calcium (8.5-10.1) mg/dL Troponin I (<0.045) ng/mL Diagnostic Data: Diagnostic Data Abdomen CTA 09/25/18 18:41 IMPRESSION: 1. Multiple metastases involving the lungs retroperitoneal fat and mesenteric fat and subcutaneous fat and right adrenal gland. 2. Enlarged prostate. 3. Fatty infiltration of the liver. N.B. : The above information has been verbally conveyed by Kevon Carroll DO to Marta Contreras MD, on 09/25/2018 22:36:27 (ET). Electronically Signed: Kevon Carroll DO at 22:37 EST Tel [phone], Service support , ADDENDUM: 09/25/182243 IMPRESSION: 1. Multiple metastases involving the lungs retroperitoneal fat and mesenteric fat and subcutaneous fat and right adrenal gland. 2. Enlarged prostate. 3. Fatty infiltration of the liver. N.B. : The above information has been verbally conveyed by Kevon Carroll DO to Marta Contreras MD, on 09/25/2018 22:36:27 (ET). Electronically Signed: Kevon Carroll DO at 22:37 EST Tel [phone], Service support , Chest CTA 09/25/18 18:41 IMPRESSION: Diffuse low attenuation masses throughout both lungs suspicious for metastatic disease. In light of their low attenuation appearance and the presence of similar lesions in the subcutaneous tissues metastatic melanoma is suspected. N.B. : The above information has been verbally conveyed by Kevon Carroll DO to Marta Contreras MD, on 09/25/2018 22:41:33 (ET). Electronically Signed: Kevon Carroll DO at 22:42 EST Tel [phone], Service support , ADDENDUM: 09/25/18 2249 IMPRESSION: Diffuse low attenuation masses throughout both lungs suspicious for metastatic disease. In light of their low attenuation appearance and the presence of similar lesions in the subcutaneous tissues metastatic melanoma is suspected. N.B. : The above information has been verbally conveyed by Kevon Carroll DO to Marta Contreras MD, on 09/25/2018 22:41:33 (ET). Electronically Signed: Kevon Carroll DO at 22:42 EST Tel [phone], Service support , Pelvis CTA 09/25/18 18:45 IMPRESSION: 1. Multiple metastases involving the lungs retroperitoneal fat and mesenteric fat and subcutaneous fat and right adrenal gland. 2. Enlarged prostate. 3. Fatty infiltration of the liver. N.B. : The above information has been verbally conveyed by Kevon Carroll DO to Marta Contreras MD, on 09/25/2018 22:36:27 (ET). Electronically Signed: Kevon Carroll DO at 22:37 EST Tel [phone], Service support , ADDENDUM: 09/25/185 IMPRESSION: 1. Multiple metastases involving the lungs retroperitoneal fat and mesenteric fat and subcutaneous fat and right adrenal gland. 2. Enlarged prostate. 3. Fatty infiltration of the liver. N.B. : The above information has been verbally conveyed by Kevon Carroll DO to Marta Contreras MD, on 09/25/2018 22:36:27 (ET). Electronically Signed: Kevon Carroll DO at 22:37 EST Tel [phone], Service support , Biopsy CT 09/26/18 08:06 IMPRESSION: 1. CT directed core needle biopsy of the left upper lobe using CT image guidance with image documentation as described. Pathology results are pending. 2. Conscious Sedation protocol utilized with independent monitoring. Electronically Signed: Rodger Colunga MD at 12:17 EST , Service support , Chest X-Ray 09/26/18 12:28 IMPRESSION: Stable examination. No evidence of pneumothorax. Electronically Signed: Rodger Colunga MD at 13:06 EST , Service support , Assessment and Plan Disseminated malignancy most likely Melanoma. Respiratory failure due Metastatic disease. Prognosis is poor, may be in weeks. Lung mass biopsy pending. Suggestion to do supportive care for respiratory failure. Obtain palliative care consult. Will discuss Targeted therapy if biopsy shows actionable markers. Will follow with you. Thanks. Medications: Medications Added to Medication List This Visit Category Date Time Status 0.9% Normal Saline 500 ml Med 09/26/18 08:45 Active IV KVO mls/hr Atenolol [Tenormin (beta Trav)] Med 09/26/18 11:35 Active 25 mg PO DAILY Atorvastatin Calcium [Lipitor] Med 09/26/18 22:00 Active 10 mg PO DAILY@2200 Enoxaparin [Lovenox] Med 09/26/18 10:00 Hold 40 mg SC DAILY@1000 Ensure Enlive Med 09/26/18 10:00 Active 120 ml PO 4X/DAY Lisinopril [Zestril] Med 09/26/18 10:00 Active 20 mg PO DAILY morphine Inj Med 09/26/18 11:48 Active 2 - 4 mg IV Q4H PRN PRN morphine Inj Med 09/26/18 12:15 Active 2 - 4 mg IV Q4H PRN PRN Primary Care Provider: Fahad Siddiqi MD Referring Provider: - Problem List (1) Metastatic malignant melanoma Status: Acute (2) Acute respiratory failure with hypoxia Status: Acute Code Visit Office Visits / Consults: [id number] IP Consult L5
--- NOTE | 2018-09-26 16:22 | CON.PCM_ITS ---
Consult Referring Physician: Dr. Moni melendez. Consult Results: Disseminated malignancy-most likely Melanoma. Subjective Date of Service:: 09/26/18 Chief Complaint: SOB History of Present Illness: 63-year-old man presented with shortness of breath, Dr. Siddiqi sent him to the emergency room. He was found to be hypoxic. CT on 09/25/2018 showed multiple lung nodules, multiple subcutaneous nodules and multiple peritoneal nodules. He is now admitted to the hospital. He had melanoma removed from the left upper arm over a year ago first at [facility] and then at [facility]. PET/CT scan in May 2017 was reported as negative. Past Medical History: Chronic Problems (Last Reviewed 06/12/18 @ 11:08 by Saniya Parsons) HTN (hypertension) (Chronic) HLD (hyperlipidemia) (Chronic) Past Medical/Surgical History: Past Medical History - Most Recent Inpatient Visit Past Medical History Start: 09/25/18 23:59 Text: Status: Complete Freq: ONCE Protocol: Document 09/25/18 23:59 [facility] (Rec: 09/26/18 00:15 [facility] [id number]) BMI Required to complete PMH What is Patient's BMI 28.5 Past Medical History Unable History Recalled No Query Text:Pt Unable/Family Not Present Neurologic Medical History Hx Stroke/TIA No Hx Dementia/Alzheimer's No Hx Parkinson's Disease No Hx Seizures No Hx Multiple Sclerosis No Hx Migraines No Cardiac Medical History VTE Present on Admission No Hx of Deep Vein Thrombosis/VTE/PE No Hx Hypertension Yes Hx Chest Pain/Angina No Hx Heart Attack No Hx Cardiac Surgery/Stents/Etc. No Hx Heart Failure No Hx Pacemaker/AICD No Hx Irregular Heartbeat and/or Afib No Hx Anticoagulant Therapy No Query Text:(Coumadin, Aspirin, Plavix, Xarelto, etc.) Hx Pain in Legs when Walking/Leg Cramps No Respiratory Medical History Hx COPD No Hx Emphysema No Hx Smoking No Smoking Status Never smoker Tobacco Use Non-smoker Hx Tobacco Use in last 12 months No Hx Sleep Apnea No Do you snore loudly (louder than talking No or can be heard through closed doors)? Do you often feel tired/ fatigued/ No sleepy during daytime? Has anyone observed you stop breathing No during sleep? STOP Results Negative GI Medical History Hx Ulcer No Hx Hepatitis No Hx Cirrhosis No Hx GI Bleed No Hx Unplanned Weight Loss No Genitourinary Medical History Indwelling Catheter in Place on Arrival/ No Admission Hx Renal Disease No Hx Dialysis No Musculoskeletal History Hx Arthritis Yes Hx Rheumatoid Arthritis No Endocrine Medical History Hx Diabetes No Hx Thyroid Disease No Hematologic Medical History Hx of Blood Transfusion No Hx of Transfusion in last 3 Months No Ever experience any problems with No transfusion(s)? Hx of Preganancy in last 3 Months N/A Nurse Filling Out Transfusion & OHALE Questions: Date: 09/26/18 Time: 00:13 Psycho/Social Medical History Hx Depression No Hx Anxiety No Hx Behavior Disorder No Hx Alcohol Use No Hx Substance Use No Other Medical History Hx Blood Disorders No Hx Anemia No Hx Cancer Yes: lung with mets Hx Drug Resistant Organism No Wound/Pressure Injury Present on Arrival No /Admission Query Text:If yes, chart assessment in Shift/Clinical Findings Central Line/PICC/VAD Present on Arrival No /Admission Antibiotics within last 7 days? No Risk for Readmission Number of Risk Factors 2 At Risk for Readmission Patient is At Risk For Readmission Patient is eligible for Call Back Y Past Medical History (Last Reviewed 06/12/18 @ 11:08 by Saniya Parsons) Melanoma (Acute) HTN (hypertension) (Chronic) Past Surgical History (Last Reviewed 06/12/18 @ 11:08 by Saniya Parsons) Status post surgical removal of malignant neoplasm of skin (Acute) Maternal Family History: Family History (Last Reviewed 06/12/18 @ 11:08 by Saniya Parsons) Mother Diabetes Heart disease Father Heart disease Family History: - - Patient notes a maternal and paternal family history of heart disease in addition to a paternal family history of chronic lung disease with history of concurrent tobacco usage. Paternal Family History: Family History (Last Reviewed 06/12/18 @ 11:08 by Saniya Parsons) Mother Diabetes Heart disease Father Heart disease Family History: - - Patient notes a maternal and paternal family history of heart disease in addition to a paternal family history of chronic lung disease with history of concurrent tobacco usage. - Social History Lives: Alone Smoking Status: Never smoker Tobacco Use: Non-smoker Alcohol: None Drugs: None Allergies/Adverse Reactions: Allergy/AdvReac Type Severity Reaction Status Date / Time No Known Allergies Allergy Verified 09/25/18 18:16 Review of Systems Constitutional:: Reports: Weakness, Weight loss. Denies: Fever, Sweats Cardiovascular:: Denies: Chest pain, Palpitations, Dyspnea on exertion, Orthopnea, PND, Shortness of breath Respiratory: Reports: Shortness of breath at rest - for about 1 month. Gastrointestinal:: Denies: Abdominal pain, Nausea, Vomiting, Diarrhea, Constipation, Hematochezia Genitourinary: Denies: Dysuria, Hematuria, 15, Flank pain Musculoskeletal:: Denies: Back pain, Myalgia, Arthralgia Skin: Denies: Rash, Skin Changes, Wounds Neurological:: Denies: Headache, Dizziness, Visual changes, Tinnitus, Hearing loss Psychiatric: Denies: Anxiety, Depression, Homicidal Ideations, Suicidal Ideations Vital Signs Height 5 ft 10 in Weight: 90 kg Weight in Pounds 198.4 lbs Pulse Ox 94 Temperature 97.7 F Pulse Rate [4] 112 Pulse Rate [3] 110 Pulse Rate [2] 112 Pulse Rate [1 (Initial 111 Baseline)] Pulse Rate 100 Respiratory Rate [4] 23 Respiratory Rate [3] 26 Respiratory Rate [2] 23 Respiratory Rate [1 (Initial 25 Baseline)] Respiratory Rate 26 Blood Pressure [4] 125/65 Blood Pressure [3] 123/57 Blood Pressure [2] 112/44 Blood Pressure [1 (Initial 124/60 Baseline)] Blood Pressure 113/69 Blood Pressure Position Semi-Fowlers - Physical Exam General: Alert, Oriented x3, No apparent distress HEENT: Atraumatic, PERRLA, EOMI, Normocephalic Oropharynx:: Dry mucosa Neck:: Supple, Trachea midline. Negative for: JVD, bilateral Cardiac:: Tachycardia Lungs: Normal air movement, Tachypneic Abdomen:: Bowel sounds x 4, Soft, Non-tender, Non-distended. Negative for: Hepatosplenomegaly Extremities:: - - Scar L arm.. Negative for: Cyanosis, Edema Neurological: Neuro grossly intact Skin:: - - multiple subcutaneous nodules. Psychiatric:: Appropriate affect, Euthymic Lymphatics:: Negative for: Cervical lymphadenopathy, Supraclavicular lymphadenopathy, Axillary lymphadenopathy Laboratory Data: Laboratory Tests 09/26/18 09/25/18 09/25/18 Range/Units 08:38 23:06 18:35 WBC (4.4-11.0) K/mm3 RBC (4.6-6.2) M/mm3 Hgb (13.0-16.5) g/dl Hct (40-54) % MCV (80-94) fL MCH (27.0-32.0) pg MCHC (32-36) g/gl RDW (11.6-14.6) % RDW Differential (35.1-43.9) fl Plt Count (150-450) K/mm3 MPV (6.2-12.0) fl Immature Gran % (Auto) (0.0-0.9) % Neut % (Auto) (47-70) % Lymph % (Auto) (19-41) % [place] % (Auto) (0-10) % Eos % (Auto) (0-5) % Baso % (Auto) (0-1) % Absolute Neuts (auto) (2.0-7.7) X10^3/uL Absolute Lymphs (auto) (0.83-4.51) X10^3/ul Total Counted PT 13.6 (11.7-14.9) SECONDS INR 1.0 Specimen Type ART Sample Site R Radial pH 7.38 (7.35-7.45) Bicarbonate Actual 23.0 (22-26) mmol/L POC Total CO2 24 mmol/L Base Excess -2 (-2 to +2) mmol/L O2 Saturation 91 L (95-99) % O2 % 50 ABG pCO2 39.1 (35-45) mmHg ABG pO2 62 L (75-100) mmHG Joselito Test POS O2 Delivery Device Vent Mask Blood Gas Notified Whom HOSP Sodium 139 (136-145) mmol/L Potassium 3.8 (3.5-5.1) mmol/L Chloride 107 (98-107) mmol/L Carbon Dioxide 22.0 (21.0-32.0) mmol/L Anion Gap 10 (5-15) BUN 31 H (7-18) mg/dL Creatinine 0.68 L (0.70-1.30) mg/dL Estim Creat Clear Calc 111.83 ml/min Est GFR (MDRD) Af Amer 150 (>60) mL/min Est GFR (MDRD) Non-Af 124 (>60) mL/min BUN/Creatinine Ratio 45.5 H (10-20) RATIO Glucose 99 (74-106) mg/dL Calcium 8.7 (8.5-10.1) mg/dL Troponin I < 0.015 (<0.045) ng/mL 09/25/18 Range/Units 18:35 WBC 9.8 (4.4-11.0) K/mm3 RBC 4.60 (4.6-6.2) M/mm3 Hgb 14.2 (13.0-16.5) g/dl Hct 42.8 (40-54) % MCV 93.0 (80-94) fL MCH 30.9 (27.0-32.0) pg MCHC 33.2 (32-36) g/gl RDW 14.0 (11.6-14.6) % RDW Differential 47.4 H (35.1-43.9) fl Plt Count 461 H (150-450) K/mm3 MPV 9.6 (6.2-12.0) fl Immature Gran % (Auto) 0.700 (0.0-0.9) % Neut % (Auto) 72.9 H (47-70) % Lymph % (Auto) 14.5 L (19-41) % [place] % (Auto) 8.4 (0-10) % Eos % (Auto) 3.3 (0-5) % Baso % (Auto) 0.2 (0-1) % Absolute Neuts (auto) 7.1 (2.0-7.7) X10^3/uL Absolute Lymphs (auto) 1.42 (0.83-4.51) X10^3/ul Total Counted Not Reportable PT (11.7-14.9) SECONDS INR Specimen Type Sample Site pH (7.35-7.45) Bicarbonate Actual (22-26) mmol/L POC Total CO2 mmol/L Base Excess (-2 to +2) mmol/L O2 Saturation (95-99) % O2 % ABG pCO2 (35-45) mmHg ABG pO2 (75-100) mmHG Joselito Test O2 Delivery Device Blood Gas Notified Whom Sodium (136-145) mmol/L Potassium (3.5-5.1) mmol/L Chloride (98-107) mmol/L Carbon Dioxide (21.0-32.0) mmol/L Anion Gap (5-15) BUN (7-18) mg/dL Creatinine (0.70-1.30) mg/dL Estim Creat Clear Calc ml/min Est GFR (MDRD) Af Amer (>60) mL/min Est GFR (MDRD) Non-Af (>60) mL/min BUN/Creatinine Ratio (10-20) RATIO Glucose (74-106) mg/dL Calcium (8.5-10.1) mg/dL Troponin I (<0.045) ng/mL Diagnostic Data: Diagnostic Data Abdomen CTA 09/25/18 18:41 IMPRESSION: 1. Multiple metastases involving the lungs retroperitoneal fat and mesenteric fat and subcutaneous fat and right adrenal gland. 2. Enlarged prostate. 3. Fatty infiltration of the liver. N.B. : The above information has been verbally conveyed by Kevon Carroll DO to Marta Contreras MD, on 09/25/2018 22:36:27 (ET). Electronically Signed: Kevon Carroll DO at 22:37 EST Tel [phone], Service support , ADDENDUM: 09/25/182243 IMPRESSION: 1. Multiple metastases involving the lungs retroperitoneal fat and mesenteric fat and subcutaneous fat and right adrenal gland. 2. Enlarged prostate. 3. Fatty infiltration of the liver. N.B. : The above information has been verbally conveyed by Kevon Carroll DO to Marta Contreras MD, on 09/25/2018 22:36:27 (ET). Electronically Signed: Kevon Carroll DO at 22:37 EST Tel [phone], Service support , Chest CTA 09/25/18 18:41 IMPRESSION: Diffuse low attenuation masses throughout both lungs suspicious for metastatic disease. In light of their low attenuation appearance and the presence of similar lesions in the subcutaneous tissues metastatic melanoma is suspected. N.B. : The above information has been verbally conveyed by Kevon Carroll DO to Marta Contreras MD, on 09/25/2018 22:41:33 (ET). Electronically Signed: Kevon Carroll DO at 22:42 EST Tel [phone], Service support , ADDENDUM: 09/25/18 2249 IMPRESSION: Diffuse low attenuation masses throughout both lungs suspicious for metastatic disease. In light of their low attenuation appearance and the presence of similar lesions in the subcutaneous tissues metastatic melanoma is suspected. N.B. : The above information has been verbally conveyed by Kevon Carroll DO to Marta Contreras MD, on 09/25/2018 22:41:33 (ET). Electronically Signed: Kevon Carroll DO at 22:42 EST Tel [phone], Service support , Pelvis CTA 09/25/18 18:45 IMPRESSION: 1. Multiple metastases involving the lungs retroperitoneal fat and mesenteric fat and subcutaneous fat and right adrenal gland. 2. Enlarged prostate. 3. Fatty infiltration of the liver. N.B. : The above information has been verbally conveyed by Kevon Carroll DO to Marta Contreras MD, on 09/25/2018 22:36:27 (ET). Electronically Signed: Kevon Carroll DO at 22:37 EST Tel [phone], Service support , ADDENDUM: 09/25/185 IMPRESSION: 1. Multiple metastases involving the lungs retroperitoneal fat and mesenteric fat and subcutaneous fat and right adrenal gland. 2. Enlarged prostate. 3. Fatty infiltration of the liver. N.B. : The above information has been verbally conveyed by Kevon Carroll DO to Marta Contreras MD, on 09/25/2018 22:36:27 (ET). Electronically Signed: Kevon Carroll DO at 22:37 EST Tel [phone], Service support , Biopsy CT 09/26/18 08:06 IMPRESSION: 1. CT directed core needle biopsy of the left upper lobe using CT image guidance with image documentation as described. Pathology results are pending. 2. Conscious Sedation protocol utilized with independent monitoring. Electronically Signed: Rodger Colunga MD at 12:17 EST , Service support , Chest X-Ray 09/26/18 12:28 IMPRESSION: Stable examination. No evidence of pneumothorax. Electronically Signed: Rodger Colunga MD at 13:06 EST , Service support , Assessment and Plan Disseminated malignancy most likely Melanoma. Respiratory failure due Metastatic disease. Prognosis is poor, may be in weeks. Lung mass biopsy pending. Suggestion to do supportive care for respiratory failure. Obtain palliative care consult. Will discuss Targeted therapy if biopsy shows actionable markers. Will follow with you. Thanks. Medications: Medications Added to Medication List This Visit Category Date Time Status 0.9% Normal Saline 500 ml Med 09/26/18 08:45 Active IV KVO mls/hr Atenolol [Tenormin (beta Trav)] Med 09/26/18 11:35 Active 25 mg PO DAILY Atorvastatin Calcium [Lipitor] Med 09/26/18 22:00 Active 10 mg PO DAILY@2200 Enoxaparin [Lovenox] Med 09/26/18 10:00 Hold 40 mg SC DAILY@1000 Ensure Enlive Med 09/26/18 10:00 Active 120 ml PO 4X/DAY Lisinopril [Zestril] Med 09/26/18 10:00 Active 20 mg PO DAILY morphine Inj Med 09/26/18 11:48 Active 2 - 4 mg IV Q4H PRN PRN morphine Inj Med 09/26/18 12:15 Active 2 - 4 mg IV Q4H PRN PRN Primary Care Provider: Fahad Siddiqi MD Referring Provider: - Problem List (1) Metastatic malignant melanoma Status: Acute (2) Acute respiratory failure with hypoxia Status: Acute Code Visit Office Visits / Consults: [id number] IP Consult L5
[2018-09-26] MEDS: clonazePAM 1 MG Tablet PO (18:32)
[2018-09-26] MEDS: Atorvastatin Calcium 10 MG Tablet PO (21:55)
[2018-09-26] MEDS: LORazepam 0.5 MG Tablet PO (21:56)
[2018-09-27] VITALS (17 sets, daily range): BP systolic 100–140; BP diastolic 59–74; PULSE 88–122; RESP 20–30; TEMP 36.3–37.1; O2SAT 13–95
[2018-09-27] MEDS: 0.9% Normal Saline 1,000 ML 100 ML IV ×2 (01:43→11:37)
[2018-09-27] MEDS: clonazePAM 1 MG Tablet PO ×2 (06:27→22:43)
[2018-09-27] MEDS: Ipratropium/Albuterol Sulfate 3 ML AMPUL.NEB INHALATION ×4 (07:18→19:09)
--- NOTE | 2018-09-27 11:32 | CASEMGMT ---
Assessment- SW met with patient, introduced self and role at [facility]. Patient was in agreement with talking to SW. Living situation- Patient lives alone in a 1 story home with 1 entry step. PCP: Dr Siddiqi Specialists: None Pharmacy: [facility] DME: None ADL's/IADL's: Independent in all activities Past SNF/rehab: None Past HH: None LW: Patient has a living will and he is aware it is not on file. POA: Patient has a Healthcare POA and he is aware it is not on file. His brotherObey is his POA Plan: Patient is waiting on results from his lung biopsy to determine his treatment plan. He would like to talk with Hospice/Palliative Care just to see what they offer so he knows what is available once he knows more. He did not want any other family present for discussion. SW called Hospice and spoke with Candy letting her know this plan. They will make contact with patient to inform him on their services. Patient is currently on high flow O2 which he would likely not be able to get at home. He is open to options if his insurance would pay for them. SW is not sure he would qualify for SNF, but PT/OT was ordered as this will be required before insurance would even consider SNF. CORINNE and RN CM will follow and assist with d/c plan. Irene IBANEZ MSW
[2018-09-27] MEDS: Atenolol 25 MG Tablet PO (11:37)
[2018-09-27] MEDS: Lisinopril 20 MG Tablet PO (11:38)
--- NOTE | 2018-09-27 12:08 | CASEMGMT ---
SW spoke with Kalyn from Palliative/Hospice. Patient would not talk to her, but he had a female visitor present who spoke to her for him. He did answer the questions in the background. They will be meeting tomorrow at 10:15a. Irene IBANEZ MSW
--- NOTE | 2018-09-27 12:24 | PCM.PROGNOTE ---
Patient Problems: Active and Suspected Problems (Last Reviewed 06/12/18 @ 11:08 by Saniya Parsons) Acute respiratory failure with hypoxia (Acute) Metastatic malignant melanoma (Acute) Subjective: The patient was seen and examined at the bedside this morning. Events from the last 24 hours have been reviewed. The patient is currently afebrile, hemodynamically stable and maintaining appropriate oxygen saturations on 15 L/min. The patient did undergo successful CT-guided lung biopsy yesterday. Pathology results are currently pending. The patient voiced interest in talking to palliative care/hospice. There is currently a meeting scheduled for tomorrow morning. Objective: CTA chest revealed no evidence for pulmonary embolism. However, there were innumerable rounded solid masses scattered throughout both lungs, consistent with metastatic disease. A CT of the abdomen also demonstrated evidence of metastatic disease. - Physical Exam General: Alert, Cooperative HEENT: Atraumatic, PERRLA, Normocephalic Oral: No Gingival or Mucosal Lesions/ Ulcerations Neck: Supple, No Nodes, Trachea Midline Lungs: Diminished, Short of Breath, Tachypneic Cardiovascular: Normal S1, Normal S2, No murmurs, Tachycardic Abdomen: Bowel Sounds Present, Soft, Non Tender Extremities: No clubbing, No cyanosis, No edema Skin: No breakdown Musculoskeletal: No Tenderness to Palpation of Joints or Extremities Lymphatic: No Cervical, Supraclavicular, or Inguinal Adenopathy Neurological: Neuro grossly intact Psych/Mental Status: Depressed Vital Signs Temp Pulse Resp BP Pulse Ox 36.9 C 120 H 24 H 117/67 89 09/27/18 09:42 09/27/18 11:22 09/27/18 11:22 09/27/18 09:42 09/27/18 11:22 Oxygen Flow Rate (L/min) [4] 6 Oxygen Flow Rate (L/min) [3] 6 Oxygen Flow Rate (L/min) [2] 6 Oxygen Flow Rate (L/min) [1 ( 6 Initial Baseline)] Oxygen Flow Rate (L/min) 15 Oxygen Delivery Method [4] Nasal Cannula Oxygen Delivery Method [3] Nasal Cannula Oxygen Delivery Method [2] Nasal Cannula Oxygen Delivery Method [1 ( Nasal Cannula Initial Baseline)] Oxygen Delivery Method Nasal Cannula Weight: 198 lb 6.656 oz Body Mass Index (BMI) 28.4 Intake and Output for Last 24 Hours 09/25/18 09/26/18 09/27/18 23:59 23:59 23:59 Intake Total 23.1 / 23.1 3264 / 3264 607 / 607 Output Total 575 / 575 300 / 300 Balance 23.1 / 23.1 2689 / 2689 307 / 307 Labs (Last 48 Hours) 09/25/18 09/25/18 09/25/18 18:35 18:35 23:06 WBC 9.8 RBC 4.60 Hgb 14.2 Hct 42.8 MCV 93.0 MCH 30.9 MCHC 33.2 RDW 14.0 RDW Differential 47.4 H Plt Count 461 H MPV 9.6 Immature Gran % (Auto) 0.700 Neut % (Auto) 72.9 H Lymph % (Auto) 14.5 L [place] % (Auto) 8.4 Eos % (Auto) 3.3 Baso % (Auto) 0.2 Absolute Neuts (auto) 7.1 Absolute Lymphs (auto) 1.42 Total Counted Not Reportable PT INR Specimen Type ART Sample Site R Radial pH 7.38 Bicarbonate Actual 23.0 POC Total CO2 24 Base Excess -2 O2 Saturation 91 L O2 % 50 ABG pCO2 39.1 ABG pO2 62 L Joselito Test POS O2 Delivery Device Vent Mask Blood Gas Notified Whom HOSP Sodium 139 Potassium 3.8 Chloride 107 Carbon Dioxide 22.0 Anion Gap 10 BUN 31 H Creatinine 0.68 L Estim Creat Clear Calc 111.83 Est GFR (MDRD) Af Amer 150 Est GFR (MDRD) Non-Af 124 BUN/Creatinine Ratio 45.5 H Glucose 99 Calcium 8.7 Troponin I < 0.015 09/26/18 08:38 WBC RBC Hgb Hct MCV MCH MCHC RDW RDW Differential Plt Count MPV Immature Gran % (Auto) Neut % (Auto) Lymph % (Auto) [place] % (Auto) Eos % (Auto) Baso % (Auto) Absolute Neuts (auto) Absolute Lymphs (auto) Total Counted PT 13.6 INR 1.0 Specimen Type Sample Site pH Bicarbonate Actual POC Total CO2 Base Excess O2 Saturation O2 % ABG pCO2 ABG pO2 Joeslito Test O2 Delivery Device Blood Gas Notified Whom Sodium Potassium Chloride Carbon Dioxide Anion Gap BUN Creatinine Estim Creat Clear Calc Est GFR (MDRD) Af Amer Est GFR (MDRD) Non-Af BUN/Creatinine Ratio Glucose Calcium Troponin I Clinical Impression(s) from Imaging Studies Abdomen CTA 09/25/18 18:41 IMPRESSION: 1. Multiple metastases involving the lungs retroperitoneal fat and mesenteric fat and subcutaneous fat and right adrenal gland. 2. Enlarged prostate. 3. Fatty infiltration of the liver. N.B. : The above information has been verbally conveyed by Kevon Carroll DO to Marta Contreras MD, on 09/25/2018 22:36:27 (ET). Electronically Signed: Kevon Carroll DO at 22:37 EST Tel [phone], Service support , ADDENDUM: 09/25/18 2244 IMPRESSION: 1. Multiple metastases involving the lungs retroperitoneal fat and mesenteric fat and subcutaneous fat and right adrenal gland. 2. Enlarged prostate. 3. Fatty infiltration of the liver. N.B. : The above information has been verbally conveyed by Kevon Carroll DO to Marta Contreras MD, on 09/25/2018 22:36:27 (ET). Electronically Signed: Kevon Carroll DO at 22:37 EST Tel [phone], Service support , Chest CTA 09/25/18 18:41 IMPRESSION: Diffuse low attenuation masses throughout both lungs suspicious for metastatic disease. In light of their low attenuation appearance and the presence of similar lesions in the subcutaneous tissues metastatic melanoma is suspected. N.B. : The above information has been verbally conveyed by Kevon Carroll DO to Marta Contreras MD, on 09/25/2018 22:41:33 (ET). Electronically Signed: Kevon Carroll DO at 22:42 EST Tel [phone], Service support , ADDENDUM: 09/25/18 2249 IMPRESSION: Diffuse low attenuation masses throughout both lungs suspicious for metastatic disease. In light of their low attenuation appearance and the presence of similar lesions in the subcutaneous tissues metastatic melanoma is suspected. N.B. : The above information has been verbally conveyed by Kevon Carroll DO to Marta Contreras MD, on 09/25/2018 22:41:33 (ET). Electronically Signed: Kevon Carroll DO at 22:42 EST Tel [phone], Service support , Pelvis CTA 09/25/18 18:45 IMPRESSION: 1. Multiple metastases involving the lungs retroperitoneal fat and mesenteric fat and subcutaneous fat and right adrenal gland. 2. Enlarged prostate. 3. Fatty infiltration of the liver. N.B. : The above information has been verbally conveyed by Kevon Carroll DO to Marta Contreras MD, on 09/25/2018 22:36:27 (ET). Electronically Signed: Kevon Carroll DO at 22:37 EST Tel [phone], Service support , ADDENDUM: 09/25/18 2245 IMPRESSION: 1. Multiple metastases involving the lungs retroperitoneal fat and mesenteric fat and subcutaneous fat and right adrenal gland. 2. Enlarged prostate. 3. Fatty infiltration of the liver. N.B. : The above information has been verbally conveyed by Kevon Carroll DO to Marta Contreras MD, on 09/25/2018 22:36:27 (ET). Electronically Signed: Kevon Carroll DO at 22:37 EST Tel [phone], Service support , Biopsy CT 09/26/18 08:06 IMPRESSION: 1. CT directed core needle biopsy of the left upper lobe using CT image guidance with image documentation as described. Pathology results are pending. 2. Conscious Sedation protocol utilized with independent monitoring. Electronically Signed: Rodger Colunga MD at 12:17 EST , Service support , Chest X-Ray 09/26/18 09:25 IMPRESSION: No evidence of pneumothorax on the post left lung biopsy radiograph. Electronically Signed: Rodger Colunga MD at 13:05 EST , Service support , Chest X-Ray 09/26/18 12:28 IMPRESSION: Stable examination. No evidence of pneumothorax. Electronically Signed: Rodger Colunga MD at 13:06 EST , Service support , Medical Necessity - Tobacco Use Smoking Status: Never smoker Tobacco Use: Non-smoker Assessment/Plan All Active Problems (Last Reviewed 06/12/18 @ 11:08 by Saniya Parsons) Acute respiratory failure with hypoxia (Acute) Metastatic malignant melanoma (Acute) Laceration of left thumb without damage to nail (Acute) RECOMMENDATIONS: 1. Wean supplemental oxygen as tolerated. 2. Agree with palliative care/hospice consultation. IMPRESSIONS: 1. Acute hypoxemic respiratory failure secondary to extensive suspected pulmonary metastatic disease The patient does have a reported history of melanoma, which was surgically resected 1 year ago. He reportedly had clear margins and no lymph node involvement at that time. However, over the course of the last year, the patient appears to have developed significant pulmonary metastatic disease with extensive tumor burden bilaterally. This is most likely the etiology for his hypoxemia. The patient did undergo a CT-guided lung biopsy on September 26, the results of which are currently pending. He has already been evaluated by oncology and there are current plans for a hospice/palliative care meeting tomorrow morning. I will be available should any additional pulmonary related questions arise. Please do not hesitate to contact me. This note was generated with [employer] dictation software. It may contain incorrect words, spelling, and punctuation that were not noted in checking the note before signing. Code Visit Inpatient E&M: 09573 Subs Hosp L2
--- NOTE | 2018-09-27 12:28 | PN_ITS ---
Patient Problems: Active and Suspected Problems (Last Reviewed 06/12/18 @ 11:08 by Saniya Parsons) Acute respiratory failure with hypoxia (Acute) Metastatic malignant melanoma (Acute) Subjective: The patient was seen and examined at the bedside this morning. Events from the last 24 hours have been reviewed. The patient is currently afebrile, hemodynamically stable and maintaining appropriate oxygen saturations on 15 L/min. The patient did undergo successful CT-guided lung biopsy yesterday. Pathology results are currently pending. The patient voiced interest in talking to palliative care/hospice. There is currently a meeting scheduled for tomorrow morning. Objective: CTA chest revealed no evidence for pulmonary embolism. However, there were innumerable rounded solid masses scattered throughout both lungs, consistent with metastatic disease. A CT of the abdomen also demonstrated evidence of metastatic disease. - Physical Exam General: Alert, Cooperative HEENT: Atraumatic, PERRLA, Normocephalic Oral: No Gingival or Mucosal Lesions/ Ulcerations Neck: Supple, No Nodes, Trachea Midline Lungs: Diminished, Short of Breath, Tachypneic Cardiovascular: Normal S1, Normal S2, No murmurs, Tachycardic Abdomen: Bowel Sounds Present, Soft, Non Tender Extremities: No clubbing, No cyanosis, No edema Skin: No breakdown Musculoskeletal: No Tenderness to Palpation of Joints or Extremities Lymphatic: No Cervical, Supraclavicular, or Inguinal Adenopathy Neurological: Neuro grossly intact Psych/Mental Status: Depressed Vital Signs Temp Pulse Resp BP Pulse Ox 36.9 C 120 H 24 H 117/67 89 09/27/18 09:42 09/27/18 11:22 09/27/18 11:22 09/27/18 09:42 09/27/18 11:22 Oxygen Flow Rate (L/min) [4] 6 Oxygen Flow Rate (L/min) [3] 6 Oxygen Flow Rate (L/min) [2] 6 Oxygen Flow Rate (L/min) [1 ( 6 Initial Baseline)] Oxygen Flow Rate (L/min) 15 Oxygen Delivery Method [4] Nasal Cannula Oxygen Delivery Method [3] Nasal Cannula Oxygen Delivery Method [2] Nasal Cannula Oxygen Delivery Method [1 ( Nasal Cannula Initial Baseline)] Oxygen Delivery Method Nasal Cannula Weight: 198 lb 6.656 oz Body Mass Index (BMI) 28.4 Intake and Output for Last 24 Hours 09/25/18 09/26/18 09/27/18 23:59 23:59 23:59 Intake Total 23.1 / 23.1 3264 / 3264 607 / 607 Output Total 575 / 575 300 / 300 Balance 23.1 / 23.1 2689 / 2689 307 / 307 Labs (Last 48 Hours) 09/25/18 09/25/18 09/25/18 18:35 18:35 23:06 WBC 9.8 RBC 4.60 Hgb 14.2 Hct 42.8 MCV 93.0 MCH 30.9 MCHC 33.2 RDW 14.0 RDW Differential 47.4 H Plt Count 461 H MPV 9.6 Immature Gran % (Auto) 0.700 Neut % (Auto) 72.9 H Lymph % (Auto) 14.5 L [place] % (Auto) 8.4 Eos % (Auto) 3.3 Baso % (Auto) 0.2 Absolute Neuts (auto) 7.1 Absolute Lymphs (auto) 1.42 Total Counted Not Reportable PT INR Specimen Type ART Sample Site R Radial pH 7.38 Bicarbonate Actual 23.0 POC Total CO2 24 Base Excess -2 O2 Saturation 91 L O2 % 50 ABG pCO2 39.1 ABG pO2 62 L Joselito Test POS O2 Delivery Device Vent Mask Blood Gas Notified Whom HOSP Sodium 139 Potassium 3.8 Chloride 107 Carbon Dioxide 22.0 Anion Gap 10 BUN 31 H Creatinine 0.68 L Estim Creat Clear Calc 111.83 Est GFR (MDRD) Af Amer 150 Est GFR (MDRD) Non-Af 124 BUN/Creatinine Ratio 45.5 H Glucose 99 Calcium 8.7 Troponin I < 0.015 09/26/18 08:38 WBC RBC Hgb Hct MCV MCH MCHC RDW RDW Differential Plt Count MPV Immature Gran % (Auto) Neut % (Auto) Lymph % (Auto) [place] % (Auto) Eos % (Auto) Baso % (Auto) Absolute Neuts (auto) Absolute Lymphs (auto) Total Counted PT 13.6 INR 1.0 Specimen Type Sample Site pH Bicarbonate Actual POC Total CO2 Base Excess O2 Saturation O2 % ABG pCO2 ABG pO2 Joselito Test O2 Delivery Device Blood Gas Notified Whom Sodium Potassium Chloride Carbon Dioxide Anion Gap BUN Creatinine Estim Creat Clear Calc Est GFR (MDRD) Af Amer Est GFR (MDRD) Non-Af BUN/Creatinine Ratio Glucose Calcium Troponin I Clinical Impression(s) from Imaging Studies Abdomen CTA 09/25/18 18:41 IMPRESSION: 1. Multiple metastases involving the lungs retroperitoneal fat and mesenteric fat and subcutaneous fat and right adrenal gland. 2. Enlarged prostate. 3. Fatty infiltration of the liver. N.B. : The above information has been verbally conveyed by Kevon Carroll DO to Marta Contreras MD, on 09/25/2018 22:36:27 (ET). Electronically Signed: Kevon Carroll DO at 22:37 EST Tel [phone], Service support , ADDENDUM: 09/25/18 2244 IMPRESSION: 1. Multiple metastases involving the lungs retroperitoneal fat and mesenteric fat and subcutaneous fat and right adrenal gland. 2. Enlarged prostate. 3. Fatty infiltration of the liver. N.B. : The above information has been verbally conveyed by Kevon Carroll DO to Marta Contreras MD, on 09/25/2018 22:36:27 (ET). Electronically Signed: Kevon Carroll DO at 22:37 EST Tel [phone], Service support , Chest CTA 09/25/18 18:41 IMPRESSION: Diffuse low attenuation masses throughout both lungs suspicious for metastatic disease. In light of their low attenuation appearance and the presence of similar lesions in the subcutaneous tissues metastatic melanoma is suspected. N.B. : The above information has been verbally conveyed by Kevon Carroll DO to Marta Contreras MD, on 09/25/2018 22:41:33 (ET). Electronically Signed: Kevon Carroll DO at 22:42 EST Tel [phone], Service support , ADDENDUM: 09/25/18 2249 IMPRESSION: Diffuse low attenuation masses throughout both lungs suspicious for metastatic disease. In light of their low attenuation appearance and the presence of similar lesions in the subcutaneous tissues metastatic melanoma is suspected. N.B. : The above information has been verbally conveyed by Kevon Carroll DO to Marta Contreras MD, on 09/25/2018 22:41:33 (ET). Electronically Signed: eKvon Carroll DO at 22:42 EST Tel [phone], Service support , Pelvis CTA 09/25/18 18:45 IMPRESSION: 1. Multiple metastases involving the lungs retroperitoneal fat and mesenteric fat and subcutaneous fat and right adrenal gland. 2. Enlarged prostate. 3. Fatty infiltration of the liver. N.B. : The above information has been verbally conveyed by Kevon Carroll DO to Marta Contreras MD, on 09/25/2018 22:36:27 (ET). Electronically Signed: Kevon Carroll DO at 22:37 EST Tel [phone], Service support , ADDENDUM: 09/25/18 2245 IMPRESSION: 1. Multiple metastases involving the lungs retroperitoneal fat and mesenteric fat and subcutaneous fat and right adrenal gland. 2. Enlarged prostate. 3. Fatty infiltration of the liver. N.B. : The above information has been verbally conveyed by Kevon Carroll DO to Marta Contreras MD, on 09/25/2018 22:36:27 (ET). Electronically Signed: Kevon Carroll DO at 22:37 EST Tel [phone], Service support , Biopsy CT 09/26/18 08:06 IMPRESSION: 1. CT directed core needle biopsy of the left upper lobe using CT image guidance with image documentation as described. Pathology results are pending. 2. Conscious Sedation protocol utilized with independent monitoring. Electronically Signed: Rodger Colunga MD at 12:17 EST , Service support , Chest X-Ray 09/26/18 09:25 IMPRESSION: No evidence of pneumothorax on the post left lung biopsy radiograph. Electronically Signed: Rodger Colunga MD at 13:05 EST , Service support , Chest X-Ray 09/26/18 12:28 IMPRESSION: Stable examination. No evidence of pneumothorax. Electronically Signed: Rodger Colunga MD at 13:06 EST , Service support , Medical Necessity - Tobacco Use Smoking Status: Never smoker Tobacco Use: Non-smoker Assessment/Plan All Active Problems (Last Reviewed 06/12/18 @ 11:08 by Saniya Parsons) Acute respiratory failure with hypoxia (Acute) Metastatic malignant melanoma (Acute) Laceration of left thumb without damage to nail (Acute) RECOMMENDATIONS: 1. Wean supplemental oxygen as tolerated. 2. Agree with palliative care/hospice consultation. IMPRESSIONS: 1. Acute hypoxemic respiratory failure secondary to extensive suspected pulmonary metastatic disease The patient does have a reported history of melanoma, which was surgically resected 1 year ago. He reportedly had clear margins and no lymph node involvement at that time. However, over the course of the last year, the patient appears to have developed significant pulmonary metastatic disease with extensive tumor burden bilaterally. This is most likely the etiology for his hypoxemia. The patient did undergo a CT-guided lung biopsy on September 26, the results of which are currently pending. He has already been evaluated by oncology and there are current plans for a hospice/palliative care meeting tomorrow morning. I will be available should any additional pulmonary related questions arise. Please do not hesitate to contact me. This note was generated with [employer] dictation software. It may contain incorrect words, spelling, and punctuation that were not noted in checking the note before signing. Code Visit Inpatient E&M: 05490 Subs Hosp L2
[2018-09-27] MEDS: Sodium Chloride 0.65% 1 SPRAY SPRAY.BTL 2 SPRAY NASAL (18:03)
[2018-09-27] MEDS: Atorvastatin Calcium 10 MG Tablet PO (22:41)
[2018-09-27] MEDS: Morphine 2 MG/ML Syringe IV (22:42)
[2018-09-27] MEDS: LORazepam 0.5 MG Tablet PO (22:43)
--- NOTE | 2018-09-27 23:05 | PCM.PROGNOTE ---
Subjective: He tells me that his anxiety is much better today and he was able to sleep last night. He is ready to have a hospice consult but, if there is treatment available he would like to have chemo. - Physical Exam General: Alert, Oriented x3, Cooperative HEENT: Atraumatic Oral: Dry Mucosa Neck: Supple, No JVD, No Nuchal Rigidity, Trachea Midline Lungs: No rales, Diminished - Throughout, Tachypneic, Using Accessory Muscles, Wheezes - Mild Cardiovascular: Regular Rhythm, Normal S1, Normal S2, No rub noted, No Gallop, Tachycardic Abdomen: Bowel Sounds Present, Soft, Non Tender, Non-Distended Extremities: No cyanosis, No edema Skin: - - many subcutaneous skin nodules. Neurological: Cranial nerves II-XII grossly intact, Neuro grossly intact Psych/Mental Status: Appropriate, Anxious, Flat Affect - not making good eye contact, Vital Signs Temp Pulse Resp BP Pulse Ox 98 F 100 28 H 135/74 H 89 09/27/18 22:00 09/27/18 22:00 09/27/18 22:00 09/27/18 22:00 09/27/18 22:00 Oxygen Flow Rate (L/min) [4] 6 Oxygen Flow Rate (L/min) [3] 6 Oxygen Flow Rate (L/min) [2] 6 Oxygen Flow Rate (L/min) [1 ( 6 Initial Baseline)] Oxygen Flow Rate (L/min) 185 Oxygen Delivery Method [4] Nasal Cannula Oxygen Delivery Method [3] Nasal Cannula Oxygen Delivery Method [2] Nasal Cannula Oxygen Delivery Method [1 ( Nasal Cannula Initial Baseline)] Oxygen Delivery Method Nasal Cannula Weight: 198 lb 6.656 oz Body Mass Index (BMI) 28.4 Intake and Output for Last 24 Hours 09/25/18 09/26/18 09/27/18 23:59 23:59 23:59 Intake Total 23.1 / 23.1 3264 / 3264 1147 / 1147 Output Total 575 / 575 300 / 300 Balance 23.1 / 23.1 2689 / 2689 847 / 847 Medical Necessity - Tobacco Use Smoking Status: Never smoker Tobacco Use: Non-smoker Assessment/Plan All Active Problems (Last Reviewed 06/12/18 @ 11:08 by Saniya Parsons) Acute respiratory failure with hypoxia (Acute) Metastatic malignant melanoma (Acute) Laceration of left thumb without damage to nail (Acute) Impressions 1. Acute hypoxic respiratory failure secondary to suspected widespread metastatic melanoma to both lungs 2. Hypertension 3. History of melanoma with excision 1 year ago and a second surgery for a wider excision 4. Hyperlipidemia 5. Dehydration Had a transthoracic bx of the left lung today Sent for cytoligy and markers D/W Dr. Nagy - very poor prognosis Pt wants to be DNR CCA until the markers come back and he sees if there is any chance that chemo will help prolong his life....he knnows there will be no cure He refuses a venti mask or CPAP/BIPAP at this time He is c/o pain at the site of the bx and MS has been ordered He is very anxious and PRN benzo's have been ordered Code Visit Inpatient E&M: 06696 Subs Hosp L3
--- NOTE | 2018-09-27 23:07 | PN_ITS ---
Subjective: this is a late entry for 09/26 The patient is a 63-year-old male with a past medical history of hypertension, malignant melanoma of the left upper extremity with 2 surgeries a proximally 1 year ago. He presented to the emergency department at the request of Dr. Moreland for severe shortness of breath. A chest x-ray as an outpatient demonstrated d iffuse pulmonary masses and he has cough with dyspnea over the past 4 weeks. He is losing weight and this is unintentional. Eyes fever/chills. Admits to having small nodules on his skin which have developed over the preceding 2 months. He was admitted to the hospital with a diagnosis of multiple pulmonary masses, acute respiratory failure with hypoxemia and suspected widespread metastatic malignant melanoma. He is tachypneic and is using accessory muscles. He has seen the CT scan of the chest and Dr. Valdovinos explained to him that this is most likely metastasis from Malignant melanoma. He has met with Dr. Nagy and Dr. Nagy told him that the tumor would be checked for tumor markers and he may be a candidate for immunotherapy which may prolong his life IF he responds well. Objective: - Physical Exam General: Alert, Oriented x3, Cooperative HEENT: Atraumatic Oral: Dry Mucosa Neck: Supple, No JVD, No Nuchal Rigidity, Trachea Midline Lungs: No rales, Diminished - Throughout, Tachypneic, Using Accessory Muscles, Wheezes - Mild Cardiovascular: Regular Rhythm, Normal S1, Normal S2, No rub noted, No Gallop, Tachycardic Abdomen: Bowel Sounds Present, Soft, Non Tender, Non-Distended Extremities: No cyanosis, No edema Skin: - - many subcutaneous skin nodules. Neurological: Cranial nerves II-XII grossly intact, Neuro grossly intact Psych/Mental Status: Appropriate, Anxious, Flat Affect - not making good eye contact, - Physical Exam Vital Signs Temp Pulse Resp BP Pulse Ox 98 F 100 28 H 135/74 H 89 09/27/18 22:00 09/27/18 22:00 09/27/18 22:00 09/27/18 22:00 09/27/18 22:00 Oxygen Flow Rate (L/min) [4] 6 Oxygen Flow Rate (L/min) [3] 6 Oxygen Flow Rate (L/min) [2] 6 Oxygen Flow Rate (L/min) [1 ( 6 Initial Baseline)] Oxygen Flow Rate (L/min) 185 Oxygen Delivery Method [4] Nasal Cannula Oxygen Delivery Method [3] Nasal Cannula Oxygen Delivery Method [2] Nasal Cannula Oxygen Delivery Method [1 ( Nasal Cannula Initial Baseline)] Oxygen Delivery Method Nasal Cannula Weight: 198 lb 6.656 oz Body Mass Index (BMI) 28.4 Intake and Output for Last 24 Hours 09/25/18 09/26/18 09/27/18 23:59 23:59 23:59 Intake Total 23.1 / 23.1 3264 / 3264 1147 / 1147 Output Total 575 / 575 300 / 300 Balance 23.1 / 23.1 2689 / 2689 847 / 847 Medical Necessity - Tobacco Use Smoking Status: Never smoker Tobacco Use: Non-smoker Assessment/Plan All Active Problems (Last Reviewed 06/12/18 @ 11:08 by Saniya Parsons) Acute respiratory failure with hypoxia (Acute) Metastatic malignant melanoma (Acute) Laceration of left thumb without damage to nail (Acute) Code Visit Inpatient E&M: 88130 Subs Hosp L3
--- NOTE | 2018-09-27 23:18 | NURSING ---
PT ASKS TO NOT BE AWOKEN UNTIL 0600. WILL SCHEDULE AND GROUP CARE PER HIS REQUEST
[2018-09-28] VITALS (9 sets, daily range): BP systolic 118–136; BP diastolic 52–81; PULSE 93–108; RESP 12–40; TEMP 36.4–36.9; O2SAT 89–93
[2018-09-28] MEDS: Morphine 2 MG/ML Syringe IV (06:34)
[2018-09-28] MEDS: Ipratropium/Albuterol Sulfate 3 ML AMPUL.NEB INHALATION ×3 (06:58→19:34)
[2018-09-28] MEDS: Atenolol 25 MG Tablet PO (09:38)
[2018-09-28] MEDS: Lisinopril 20 MG Tablet PO (09:38)
[2018-09-28] MEDS: clonazePAM 1 MG Tablet PO ×2 (09:42→20:24)
--- NOTE | 2018-09-28 09:53 | CASEMGMT ---
CORINNE met with patient per his request to complete a Healthcare LW. SW also had a copy of patient's Healthcare POA and durable POA on CORINNE's desk this am. They were copies patient had from his attorney law clerk, however they were not signed. Patient signed the Healthcare POA papers. CORINNE confirmed with patient he is meeting with Palliative/Hospice today to discuss services. He said that hopefully his brother and no one else will be present. CORINNE asked how many siblings he has and he said 7. He has a couple sisters. He said yesterday they told him Your gonna get through this. He said he told them to Shut up. RN came in and needed to do some things with patient and he just received his breakfast tray. CORINNE told patient CORINNE will come back in a little bit to do living will so he can eat etc. Irene IBANEZ MSW
--- NOTE | 2018-09-28 11:09 | CASEMGMT ---
Kalyn from Hospice came to talk with patient. SW let her know about SW's conversation with him earlier. Kalyn met with patient and he was alone. She said he signed Palliative Care papers. SW to follow for d/c planning. Irene IBANEZ MSW
[2018-09-28] MEDS: 0.9% Normal Saline 1,000 ML 100 ML IV ×2 (11:27)
[2018-09-28] MEDS: LORazepam 0.5 MG Tablet PO (14:28)
--- NOTE | 2018-09-28 14:40 | PCM.PROGNOTE ---
Subjective: All events of the past 24 hours been reviewed. He is less anxious with the Klonopin on board but has requested and increase in the dose. Pain is well controlled in the left chest. Tells me that he was able to get some sleep last night He is having some confusion, short temper and is not himself....he thinks it may be the narcotics and we agreed that we could try Tramadol Has been sitting in a chair most of the morning and is short of breath with conversational dyspnea. Admits to being fatigued. Has had much accompanying this a.m. and he is exhausted. Objective: PHYSICAL EXAM: GENERAL: alert, oriented X 3, agitated, looks very fatigued and SOB sitting in a chair ORAL: moist mucosa, no mucosal lesions NECK: No JVD, supple, trachea midline LUNGS: CTA, very diminished symmetric chest expansion HEART: RRR, Normal S1 and S2, no rub, no gallop ABDOMEN: soft, NT, ND, BS present, no guarding with palpation EXTREMITIES: no edema, no cyanosis, no calf tenderness SKIN: No rashes, no breakdown NEUROLOGIC: no focal neurologic deficits PSYCH: appropriate, normal affect, pleasant - Physical Exam Vital Signs Temp Pulse Resp BP Pulse Ox 97.6 F L 108 H 24 H 118/67 91 09/28/18 10:00 09/28/18 10:55 09/28/18 10:55 09/28/18 10:00 09/28/18 10:00 Oxygen Flow Rate (L/min) [4] 6 Oxygen Flow Rate (L/min) [3] 6 Oxygen Flow Rate (L/min) [2] 6 Oxygen Flow Rate (L/min) [1 ( 6 Initial Baseline)] Oxygen Flow Rate (L/min) 15 Oxygen Delivery Method [4] Nasal Cannula Oxygen Delivery Method [3] Nasal Cannula Oxygen Delivery Method [2] Nasal Cannula Oxygen Delivery Method [1 ( Nasal Cannula Initial Baseline)] Oxygen Delivery Method Nasal Cannula Weight: 198 lb 6.656 oz Body Mass Index (BMI) 28.4 Intake and Output for Last 24 Hours 09/26/18 09/27/18 09/28/18 23:59 23:59 23:59 Intake Total 3264 / 3264 1147 / 1147 1120 / 1120 Output Total 575 / 575 300 / 300 300 / 300 Balance 2689 / 2689 847 / 847 820 / 820 Microbiology Past 72 Hours 09/25/18 19:30 Blood Culture - Preliminary Blood Culture (Wb) #2 - Left Hand No growth in 48 hours. 09/25/18 18:35 Blood Culture - Preliminary Blood Culture (Wb) - Right Forearm No growth in 48 hours. Medical Necessity - Tobacco Use Smoking Status: Never smoker Tobacco Use: Non-smoker Assessment/Plan All Active Problems (Last Reviewed 06/12/18 @ 11:08 by Saniya Parsons) Acute respiratory failure with hypoxia (Acute) Metastatic malignant melanoma (Acute) Laceration of left thumb without damage to nail (Acute) Impressions 1. Acute hypoxic respiratory failure secondary to suspected widespread metastatic melanoma to both lungs 2. Hypertension 3. History of melanoma with excision 1 year ago and a second surgery for a wider excision 4. Hyperlipidemia 5. Dehydration 6. Encephalopathy secondary to narcotics 7. Anxiety-controlled with Klonopin Encouraged his company to limit their visits to 5-10 minutes and allow him to rest. called the lab and the bx results should be back on Monday. He still wants to wait on the bx results before going hospice......he is agreeable to palliative at this time. Code Visit Inpatient E&M: 39566 Subs Hosp L2
--- NOTE | 2018-09-28 18:00 | NURSING ---
patient awake. had been in the shower. pt denies anxiety at this time.
[2018-09-28] MEDS: LORazepam 2 MG/ML Bottle 0.5 MG SL (19:26)
[2018-09-28] MEDS: Atorvastatin Calcium 10 MG Tablet PO (20:25)
[2018-09-29] VITALS (12 sets, daily range): BP systolic 120–142; BP diastolic 56–75; PULSE 80–103; RESP 12–34; TEMP 36.3–37; O2SAT 88–95
[2018-09-29] MEDS: clonazePAM 1 MG Tablet PO ×3 (05:39→21:38)
--- NOTE | 2018-09-29 10:37 | NURSING ---
IV normal saline discontinued at this time
[2018-09-29] MEDS: Atenolol 25 MG Tablet PO (10:41)
[2018-09-29] MEDS: Lisinopril 20 MG Tablet PO (10:41)
[2018-09-29] MEDS: LORazepam 2 MG/ML Bottle 0.5 MG SL ×2 (10:41→21:31)
[2018-09-29] MEDS: Ipratropium/Albuterol Sulfate 3 ML AMPUL.NEB INHALATION (19:07)
[2018-09-29] MEDS: Atorvastatin Calcium 10 MG Tablet PO (21:32)
--- NOTE | 2018-09-30 01:34 | NURSING ---
Pt. up to BR and back to bed, refusing to wear bipap at this time. States It gives me bad dreams. I don't want to wear it. Encouraged pt. to keep bipap on but still refused.
--- NOTE | 2018-09-30 02:35 | NURSING ---
Pt. agreed to be placed back on Bipap. Pulse ox on high flow oxygen at 13L was 87%. 94% on bipap.
[2018-09-30 03:26] VITALS: BP 129/61; PULSE 93; RESP 18; TEMP 36.8; O2SAT 94
[2018-09-30 04:40] VITALS: PULSE 90; RESP 12; RESP 20; O2SAT 92
[2018-09-30] MEDS: clonazePAM 1 MG Tablet PO (06:59)
[2018-09-30 07:00] VITALS: PULSE 88; RESP 12; RESP 24; O2SAT 91
[2018-09-30] MEDS: HYDROcodone Bitartrate/Apap 5/325 Tablet PO ×2 (07:02→13:35)
[2018-09-30 10:13] VITALS: BP 125/69; PULSE 98; RESP 18; TEMP 36.8; O2SAT 88
[2018-09-30] MEDS: Lisinopril 20 MG Tablet PO (10:18)
[2018-09-30] MEDS: traMADol 50 MG Tablet PO (10:18)
[2018-09-30] MEDS: Atenolol 25 MG Tablet PO (10:18)
[2018-09-30 11:59] VITALS: BP 105/67; PULSE 86; RESP 18; TEMP 37.2; O2SAT 92
[2018-09-30 13:30] VITALS: BP 111/66; PULSE 85; RESP 18; TEMP 37.2; O2SAT 92
--- NOTE | 2018-09-30 13:44 | NURSING ---
This RN called and gave report to casting supervisor, Arpita.
--- NOTE | 2018-09-30 22:43 | PCM.PN.BLA ---
Progress Note 09/29/18 He is sleeping and is on BIPAP. Respirations are much less labored. Difficult to arouse and majority of time today was spent with his family His brother has taken the lead and convinced him to wear the BIPAP He expresses that on Monday they plan on possible transfer to the hospice center. No change in the PE except that he is less alert and more difficult to arouse. He appears more comfortable Lungs are very diminished, no rales, no wheezes less tachypneic on the BIPAP 1. Acute respiratory failure due to presumed metastatic melanoma to the BL lungs Code Visit Inpatient E&M: 69822 Subs Hosp L1
--- NOTE | 2018-09-30 22:46 | PCM.DC.SUM ---
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 Multiple metastases involving the lungs retroperitoneal fat and mesenteric fat and subcutaneous fat and right adrenal gland. 2. Enlarged prostate. 3. Fatty infiltration of the liver. N.B. : The above information has been verbally conveyed by Kevon Carroll DO to Marta Contreras MD, on 09/25/2018 22:36:27 (ET). Electronically Signed: Kevon Carroll DO at 22:37 EST Tel [phone], Service support , ADDENDUM: 09/25/18 2244 IMPRESSION: 1. Multiple metastases involving the lungs retroperitoneal fat and mesenteric fat and subcutaneous fat and right adrenal gland. 2. Enlarged prostate. 3. Fatty infiltration of the liver. N.B. : The above information has been verbally conveyed by Kevon Carroll DO to Marta Contreras MD, on 09/25/2018 22:36:27 (ET). Electronically Signed: Kevon Carroll DO at 22:37 EST Tel [phone], Service support , Chest CTA 09/25/18 18:41 IMPRESSION: Diffuse low attenuation masses throughout both lungs suspicious for metastatic disease. In light of their low attenuation appearance and the presence of similar lesions in the subcutaneous tissues metastatic melanoma is suspected. N.B. : The above information has been verbally conveyed by Kevon Carroll DO to Marta Contreras MD, on 09/25/2018 22:41:33 (ET). Electronically Signed: Kevon Carroll DO at 22:42 EST Tel [phone], Service support , ADDENDUM: 09/25/182248 IMPRESSION: Diffuse low attenuation masses throughout both lungs suspicious for metastatic disease. In light of their low attenuation appearance and the presence of similar lesions in the subcutaneous tissues metastatic melanoma is suspected. N.B. : The above information has been verbally conveyed by Kevon Carroll DO to Marta Contreras MD, on 09/25/2018 22:41:33 (ET). Electronically Signed: Kevon Carroll DO at 22:42 EST Tel [phone], Service support , Pelvis CTA 09/25/18 18:45 IMPRESSION: 1. Multiple metastases involving the lungs retroperitoneal fat and mesenteric fat and subcutaneous fat and right adrenal gland. 2. Enlarged prostate. 3. Fatty infiltration of the liver. N.B. : The above information has been verbally conveyed by Kevon Carroll DO to Marta Contreras MD, on 09/25/2018 22:36:27 (ET). Electronically Signed: Kevon Carroll DO at 22:37 EST Tel [phone], Service support , ADDENDUM: 09/25/182244 IMPRESSION: 1. Multiple metastases involving the lungs retroperitoneal fat and mesenteric fat and subcutaneous fat and right adrenal gland. 2. Enlarged prostate. 3. Fatty infiltration of the liver. N.B. : The above information has been verbally conveyed by Kevon Carroll DO to Marta Contreras MD, on 09/25/2018 22:36:27 (ET). Electronically Signed: Kevon Carroll DO at 22:37 EST Tel [phone], Service support , Biopsy CT 09/26/18 08:06 IMPRESSION: 1. CT directed core needle biopsy of the left upper lobe using CT image guidance with image documentation as described. Pathology results are pending. 2. Conscious Sedation protocol utilized with independent monitoring. Electronically Signed: Rodger Colunga MD at 12:17 EST , Service support , Chest X-Ray 09/26/18 09:25 IMPRESSION: No evidence of pneumothorax on the post left lung biopsy radiograph. Electronically Signed: Rodger Colunga MD at 13:05 EST , Service support , Chest X-Ray 09/26/18 12:28 IMPRESSION: Stable examination. No evidence of pneumothorax. Electronically Signed: Rodger Colunga MD at 13:06 EST , Service support , Dr. Nagy - oncology Dr. Valdovinos - pulmonary medicine Operations: None Procedures: - - thransthoracic bx of a left lung mass Summary of Care Provided: The patient is a 63-year-old male with a past medical history of hypertension, malignant melanoma of the left upper extremity with 2 surgeries approximately 1 year ago. He presented to the emergency department at the request of Dr. Moreland for severe shortness of breath. A chest x-ray as an outpatient demonstrated diffuse pulmonary masses and he had a cough with dyspnea over the past 4 weeks. He was losing weight and this was unintentional. He admitted to finding multiple small nodules on his skin which had developed over the preceding 2 months. He was admitted to the hospital with a diagnosis of multiple pulmonary masses, acute respiratory failure with hypoxemia and suspected widespread metastatic malignant melanoma. He was requiring very high flow O2 at 13 Liters to maintain a pulse ox of 90% and he was still markedly tachypneic. A transthoracic biopsy of a left lung mass was done on 09/26/2018. Consultation was obtained with Dr. Alex Valdovinos from pulmonary medicine and Dr. Nagy from oncology. Dr. Nagy felt the prognosis was very poor, likely weeks. He suggested a palliative care consult. He was started on Klonopin for severe anxiety and this was effective for him. He and his family met with palliative/hospice. The pt elected to have palliative care and wanted to wait for the biopsy results to come back before going hospice....he was hoping that chemo could prolong his life. His breathing status declined and on 09/30/18 his family elected to call hospice and he was transferred to the hospice facility on 09/30/18. - Physical Exam Vital Signs Temp Pulse Resp BP Pulse Ox 98.9 F 85 18 111/66 92 09/30/18 13:30 09/30/18 13:30 09/30/18 13:30 09/30/18 13:30 09/30/18 13:30 Oxygen Flow Rate (L/min) [4] 6 Oxygen Flow Rate (L/min) [3] 6 Oxygen Flow Rate (L/min) [2] 6 Oxygen Flow Rate (L/min) [1 ( 6 Initial Baseline)] Oxygen Flow Rate (L/min) 15 Oxygen Delivery Method [4] Nasal Cannula Oxygen Delivery Method [3] Nasal Cannula Oxygen Delivery Method [2] Nasal Cannula Oxygen Delivery Method [1 ( Nasal Cannula Initial Baseline)] Oxygen Delivery Method Bi-pap Weight: 198 lb 6.656 oz Body Mass Index (BMI) 28.4 Intake and Output for Last 24 Hours 09/28/18 09/29/18 09/30/18 23:59 23:59 23:59 Intake Total 1420 / 1420 1040 / 1040 480 / 480 Output Total 300 / 300 1300 / 1300 400 / 400 Balance 1120 / 1120 -260 / -260 80 / 80 Microbiology Past 72 Hours 09/25/18 19:30 Blood Culture - Preliminary Blood Culture (Wb) #2 - Left Hand No growth in 48 hours. 09/25/18 18:35 Blood Culture - Preliminary Blood Culture (Wb) - Right Forearm No growth in 48 hours. Home Medications: Medications to take at Discharge atorvastatin 10 mg tablet 10 mg PO DAILY 90 Days #90 tab 06/10/18 lisinopril 20 mg tablet 20 mg PO DAILY 90 Days #90 tab 06/10/18 Primary Care Physician: Fahad Siddiqi MD [Primary Care Provider] - Disposition: Hospice Medical Facility Minutes spent on discharge:: 30 Patient Condition:: Critical Medical Necessity - Tobacco Use Smoking Status: Never smoker Tobacco Use: Non-smoker Meaningful Use Info Meaningful Use Diagnoses (Choose all that apply): None applicable Code Visit Inpatient E&M: 69301 Disch Hosp
--- NOTE | 2018-09-30 22:57 | DS.PCM_ITS ---
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 Multiple metastases involving the lungs retroperitoneal fat and mesenteric fat and subcutaneous fat and right adrenal gland. 2. Enlarged prostate. 3. Fatty infiltration of the liver. N.B. : The above information has been verbally conveyed by Kevon Carroll DO to Marta Contreras MD, on 09/25/2018 22:36:27 (ET). Electronically Signed: Kevon Carroll DO at 22:37 EST Tel [phone], Service support , ADDENDUM: 09/25/18 2244 IMPRESSION: 1. Multiple metastases involving the lungs retroperitoneal fat and mesenteric fat and subcutaneous fat and right adrenal gland. 2. Enlarged prostate. 3. Fatty infiltration of the liver. N.B. : The above information has been verbally conveyed by Kevon Carroll DO to Marta Contreras MD, on 09/25/2018 22:36:27 (ET). Electronically Signed: Kevon Carroll DO at 22:37 EST Tel [phone], Service support , Chest CTA 09/25/18 18:41 IMPRESSION: Diffuse low attenuation masses throughout both lungs suspicious for metastatic disease. In light of their low attenuation appearance and the presence of similar lesions in the subcutaneous tissues metastatic melanoma is suspected. N.B. : The above information has been verbally conveyed by Kevon Carroll DO to Marta Contreras MD, on 09/25/2018 22:41:33 (ET). Electronically Signed: Kevon Carroll DO at 22:42 EST Tel [phone], Service support , ADDENDUM: 09/25/182248 IMPRESSION: Diffuse low attenuation masses throughout both lungs suspicious for metastatic disease. In light of their low attenuation appearance and the presence of similar lesions in the subcutaneous tissues metastatic melanoma is suspected. N.B. : The above information has been verbally conveyed by Kevon Carroll DO to Marta Contreras MD, on 09/25/2018 22:41:33 (ET). Electronically Signed: Kevon Carroll DO at 22:42 EST Tel [phone], Service support , Pelvis CTA 09/25/18 18:45 IMPRESSION: 1. Multiple metastases involving the lungs retroperitoneal fat and mesenteric fat and subcutaneous fat and right adrenal gland. 2. Enlarged prostate. 3. Fatty infiltration of the liver. N.B. : The above information has been verbally conveyed by Kevon Carroll DO to Marta Contreras MD, on 09/25/2018 22:36:27 (ET). Electronically Signed: Kevon Carroll DO at 22:37 EST Tel [phone], Service support , ADDENDUM: 09/25/182244 IMPRESSION: 1. Multiple metastases involving the lungs retroperitoneal fat and mesenteric fat and subcutaneous fat and right adrenal gland. 2. Enlarged prostate. 3. Fatty infiltration of the liver. N.B. : The above information has been verbally conveyed by Kevon Carroll DO to Marta Contreras MD, on 09/25/2018 22:36:27 (ET). Electronically Signed: Kevon Carroll DO at 22:37 EST Tel [phone], Service support , Biopsy CT 09/26/18 08:06 IMPRESSION: 1. CT directed core needle biopsy of the left upper lobe using CT image guidance with image documentation as described. Pathology results are pending. 2. Conscious Sedation protocol utilized with independent monitoring. Electronically Signed: Rodger Colunga MD at 12:17 EST , Service support , Chest X-Ray 09/26/18 09:25 IMPRESSION: No evidence of pneumothorax on the post left lung biopsy radiograph. Electronically Signed: Rodger Colunga MD at 13:05 EST , Service support , Chest X-Ray 09/26/18 12:28 IMPRESSION: Stable examination. No evidence of pneumothorax. Electronically Signed: Rodger Colunga MD at 13:06 EST , Service support , Dr. Nagy - oncology Dr. Valdovinos - pulmonary medicine Operations: None Procedures: - - thransthoracic bx of a left lung mass Summary of Care Provided: The patient is a 63-year-old male with a past medical history of hypertension, malignant melanoma of the left upper extremity with 2 surgeries approximately 1 year ago. He presented to the emergency department at the request of Dr. Moreland for severe shortness of breath. A chest x-ray as an outpatient demonstrated d iffuse pulmonary masses and he had a cough with dyspnea over the past 4 weeks. He was losing weight and this was unintentional. He admitted to finding multiple small nodules on his skin which had developed over the preceding 2 months. He was admitted to the hospital with a diagnosis of multiple pulmonary masses, acute respiratory failure with hypoxemia and suspected widespread metastatic malignant melanoma. He was requiring very high flow O2 at 13 Liters to maintain a pulse ox of 90% and he was still markedly tachypneic. A transthoracic biopsy of a left lung mass was done on 09/26/2018. Consultation was obtained with Dr. Alex Valdovinos from pulmonary medicine and Dr. Nagy from oncology. Dr. Nagy felt the prognosis was very poor, likely weeks. He suggested a palliative care consult. He was started on Klonopin for severe anxiety and this was effective for him. He and his family met with palliative/hospice. The pt elected to have palliative care and wanted to wait for the biopsy results to come back before going hospice....he was hoping that chemo could prolong his life. His breathing status declined and on 09/30/18 his family elected to call hospice and he was transferred to the hospice facility on 09/30/18. - Physical Exam Vital Signs Temp Pulse Resp BP Pulse Ox 98.9 F 85 18 111/66 92 09/30/18 13:30 09/30/18 13:30 09/30/18 13:30 09/30/18 13:30 09/30/18 13:30 Oxygen Flow Rate (L/min) [4] 6 Oxygen Flow Rate (L/min) [3] 6 Oxygen Flow Rate (L/min) [2] 6 Oxygen Flow Rate (L/min) [1 ( 6 Initial Baseline)] Oxygen Flow Rate (L/min) 15 Oxygen Delivery Method [4] Nasal Cannula Oxygen Delivery Method [3] Nasal Cannula Oxygen Delivery Method [2] Nasal Cannula Oxygen Delivery Method [1 ( Nasal Cannula Initial Baseline)] Oxygen Delivery Method Bi-pap Weight: 198 lb 6.656 oz Body Mass Index (BMI) 28.4 Intake and Output for Last 24 Hours 09/28/18 09/29/18 09/30/18 23:59 23:59 23:59 Intake Total 1420 / 1420 1040 / 1040 480 / 480 Output Total 300 / 300 1300 / 1300 400 / 400 Balance 1120 / 1120 -260 / -260 80 / 80 Microbiology Past 72 Hours 09/25/18 19:30 Blood Culture - Preliminary Blood Culture (Wb) #2 - Left Hand No growth in 48 hours. 09/25/18 18:35 Blood Culture - Preliminary Blood Culture (Wb) - Right Forearm No growth in 48 hours. Home Medications: Medications to take at Discharge atorvastatin 10 mg tablet 10 mg PO DAILY 90 Days #90 tab 06/10/18 lisinopril 20 mg tablet 20 mg PO DAILY 90 Days #90 tab 06/10/18 Primary Care Physician: Fahad Siddiqi MD [Primary Care Provider] - Disposition: Hospice Medical Facility Minutes spent on discharge:: 30 Patient Condition:: Critical Medical Necessity - Tobacco Use Smoking Status: Never smoker Tobacco Use: Non-smoker Meaningful Use Info Meaningful Use Diagnoses (Choose all that apply): None applicable Code Visit Inpatient E&M: 52481 Disch Hosp
== END 2018-09-30 14:05 | disposition hospice, inpatient (51) | DRG 180 ==
LOC: ED 18:52 → PCU 23:10
PROVIDERS: Internal Medicine Critical Care Medicine; Admitting Provider Family Medicine; Emergency Provider Emergency Medicine; Family Provider Family Medicine; PCP Family Medicine; Visit Provider Internal Medicine
DX: C78.02 Secondary malignant neoplasm of left lung (principal); J96.01 Acute respiratory failure with hypoxia; G92 Toxic encephalopathy; C79.89 Secondary malignant neoplasm of other specified sites; C78.01 Secondary malignant neoplasm of right lung; E78.5 Hyperlipidemia, unspecified; Z66 Do not resuscitate; I10 Essential (primary) hypertension; Z79.899 Other long term (current) drug therapy; Z51.5 Encounter for palliative care; Z85.820 Personal history of malignant melanoma of skin; E86.0 Dehydration; T40.605A Adverse effect of unspecified narcotics, initial encounter
CPT/HCPCS: 36415; 36600; 71045; 71046; 71275; 72191; 74175; 77012; 80048; 82803; 84484; 85025; 85610; 87040; 88172; 88305; 88313; 88325; 88341; 88342; 93005; 94002; 94003; 94640; 97162; 97166; 97802; 99156; 99157; 99251; 99283; J7030; J7040; Q9967; A4216; G0463